=== PATIENT | female | born 2000 | race Caucasian/White ===

== ENCOUNTER 2022-02-04 13:54 | Emergency (ER) | payer MEDICAID, SELFPAY ==
[2022-02-04 14:47] VITALS: BP 115/79; PULSE 101; RESP 18; TEMP 37.6; O2SAT 98; BMI 16.5
--- NOTE | 2022-02-04 15:40 | PC.NURSE ---
Assumed care of patient.
--- NOTE | 2022-02-04 15:54 | W.ED.ABDPA2 ---
HPI - Abdominal Pain General: Chief Complaint: Abdominal Pain Stated Complaint: Vomiting Time Seen by Provider: 02/04/22 14:51 Source: patient Mode of arrival: ambulatory Limitations: no limitations History of Present Illness: 21-year-old female presents emergency room with complaint of abdominal pain. Patient states her last 2 days she has had multiple episodes of vomiting and upper abdominal discomfort and tenderness. She denies any fever sweats chills dysuria urgency or frequency states she is currently on her menses does not believe she is . MD elicited complaint: abdominal pain Onset (ago): day(s) (2) Location: None Severity: moderate Quality: cramping Radiation: none Exacerbating factors: nothing Relieving factors: nothing Associated Symptoms: Reports anorexia, GI cramping, nausea, poor appetite and vomiting; Denies belching, bloating, change in bowel habits, change in stool character, chills, coffee ground emesis, constipation, diarrhea, dyspepsia, dysuria, excessive flatus, fever(s), heartburn, hematochezia, hematuria, hematemesis, fecal incontinence, loose stools, melena and syncope Review of Systems Const: Reports: fatigue and malaise; Denies: fever(s) or chills ENMT: Denies: throat pain, ear or mastoid pain, nasal discharge or nasal congestion Card: Denies: chest pain or syncope Resp: Denies: dyspnea, productive cough or non-productive cough GI: Reports: abdominal pain, nausea, vomiting and GI cramping; Denies: hematemesis, coffee ground emesis, heartburn, diarrhea, constipation, bloating, belching, excessive flatus, fecal incontinence, change in bowel habits, change in stool character, hematochezia or melena : Denies: flank pain, difficulty voiding, dysuria, urinary frequency, urinary urgency or hematuria Skin/Breast: Denies: rash or pruritus PFSH ED PFSH: Medical History No significant past medical history Surgical History No significant past surgical history Social History Smoking and tobacco status: never smoked Alcohol intake: never Physical Exam Const: GENERAL APPEARANCE: cooperative and comfortable NUTRITIONAL APPEARANCE: cachectic ORIENTATION/CONSCIOUSNESS: Yes awake, Yes oriented to person, Yes oriented to place and Yes oriented to time HENMT: COMMON NORMALS: normocephalic, atraumatic and hearing grossly normal bilaterally HEAD & SCALP: normocephalic and atraumatic Neck/C-Spine: COMMON NORMALS: no JVD Resp: COMMON NORMALS: normal respiratory effort, No retractions, No use of accessory muscles and clear to auscultation bilaterally AUSCULTATION: clear to auscultation bilaterally Cardio: COMMON NORMALS: no JVD, regular rate, regular rhythm and No murmurs present (Cardio) RATE: regular rate RHYTHM: regular rhythm GI: COMMON NORMALS: Soft to palpation and No hepatosplenomegaly present AUSCULTATION: Yes normoactive bowel sounds PALPATION: Yes Soft to palpation, No Tenderness to palpation present (GI), No Guarding due to palpation present (GI) and Yes No hepatosplenomegaly present Extremity: COMMON NORMALS: normal to inspection, capillary refill normal, no clubbing, cyanosis or edema, no calf tenderness and no pedal edema Neuro: SENSORIUM/ORIENTATION: Yes oriented to person, Yes oriented to place and Yes oriented to time Skin: COMMON NORMALS: no rashes or lesions noted GENERAL SKIN EXAM: no rashes or lesions noted Course Vital Signs: Vital signs: Vital Signs Temperature 99.6 F 02/04/22 14:47 Pulse Rate 72 02/04/22 19:00 Respiratory Rate 16 02/04/22 19:00 Blood Pressure 107/70 02/04/22 19:00 Pulse Oximetry 100 02/04/22 19:00 MDM - Abdominal Pain Medical Decision Making Labs and imaging reviewed. Slight elevation in liver enzymes otherwise unremarkable patient still has some mild abdominal discomfort White count 13 4 remainder of exam unremarkable she currently having her period which I think accounts for some of fluid in the pelvis exam to the upper abdomen does not show acute abdomen we will go ahead and discharge home at this time. Set her up for HIDA scan and establish with a PCP return if has further problems. Medical Records I reviewed the patient's medical records. Lab Data I reviewed the patient's lab results. : 02/04/22 15:45 02/04/22 15:45 Labs/Radiology: Radiology Impressions Abdomen/Pelvis CT 02/04/22 16:15 IMPRESSION: 1. Negative for acute inflammatory process in the abdomen or pelvis. 2. Right ovary 16 mm cyst, likely follicular. 3. Fluid in the uterine cavity likely related to menstrual status. Gallbladder Ultrasound 02/04/22 17:06 IMPRESSION: No acute findings. Laboratory Results WBC 13.4 10^3/uL (4.5-13.0) H 02/04/22 15:45 RBC 5.08 10^6/uL (4.1-5.3) 02/04/22 15:45 Hgb 15.2 g/dL (11.5-15.3) 02/04/22 15:45 Hct 43.9 % (37.0-47.0) 02/04/22 15:45 MCV 86.4 fl (81-99) 02/04/22 15:45 MCH 29.9 pg (28.0-34.0) 02/04/22 15:45 MCHC 34.6 g/dL (30.0-36.0) 02/04/22 15:45 RDW 12.3 % (12.1-15.1) 02/04/22 15:45 Plt Count 266 10^3/cmm (130-400) 02/04/22 15:45 MPV 12.7 fL (7.4-10.4) H 02/04/22 15:45 Neut % (Auto) 79.0 % 02/04/22 15:45 Lymph % (Auto) 13.3 % 02/04/22 15:45 [place] % (Auto) 7.2 % 02/04/22 15:45 Eos % (Auto) 0.0 % 02/04/22 15:45 Baso % (Auto) 0.1 % 02/04/22 15:45 Neut # (Auto) 10.54 10^3/uL (1.8-8.0) H 02/04/22 15:45 Lymph # (Auto) 1.8 10^3/uL (1.5-6.5) 02/04/22 15:45 [place] # (Auto) 1.0 10^3/uL (0.2-0.9) H 02/04/22 15:45 Eos # (Auto) 0.0 10^3/uL (0.0-0.8) 02/04/22 15:45 Baso # (Auto) 0.0 10^3/uL (0.0-0.1) 02/04/22 15:45 Nucleated RBC % (auto) 0 % 02/04/22 15:45 Nucleated RBCs # 0.0 /100WBC 02/04/22 15:45 Sodium 133 mmol/L (136-145) L 02/04/22 15:45 Potassium 3.4 mmol/L (3.5-5.1) L 02/04/22 15:45 Chloride 86 mmol/L (98-107) L 02/04/22 15:45 Carbon Dioxide 26 mmol/L (22-29) 02/04/22 15:45 Anion Gap 24.4 (5-19) H 02/04/22 15:45 BUN 18 mg/dL (6-20) 02/04/22 15:45 Creatinine 0.6 mg/dL (0.5-0.9) 02/04/22 15:45 GFR Calculation 128.8 mL/min (90-130) 02/04/22 15:45 Glucose 94 mg/dL (65-115) 02/04/22 15:45 Calculated Osmolality 278 mOsm/kg (285-295) L 02/04/22 15:45 Calcium 10.7 mg/dL (8.5-10.5) H 02/04/22 15:45 Total Bilirubin 0.9 mg/dL (0.15-1.2) 02/04/22 15:45 AST 46 U/L (0-32) H 02/04/22 15:45 ALT 49 U/L (0-33) H 02/04/22 15:45 Alkaline Phosphatase 113 IU/L (35-105) H 02/04/22 15:45 Total Protein 10.6 g/dL (6.6-8.7) H 02/04/22 15:45 Albumin 6.9 g/dL (3.5-5.2) H 02/04/22 15:45 Globulin 3.7 g/dL (1.3-4.6) 02/04/22 15:45 Lipase 17 U/L (13-60) 02/04/22 15:45 HCG, Qual Negative (Negative) 02/04/22 15:45 Discharge Plan Discharge Patient Disposition: Home Clinical Impression: Abdominal pain, Elevated LFTs Condition: Stable Prescriptions: New ondansetron HCl 4 mg tablet 4 mg PO Q6H PRN (Reason: nausea and vomiting) Qty: 20 0RF Discharge Orders: Discharge ED (Routine); Ordered 02/04/22 Ordered By: Fernando Umanzor Discharge Diet: Clear Liquid Discharge Activity: Increase activity as tolerated Patient Instructions: Abdominal Pain (ED), Opioid Safety Activity Restrictions/Additional Instructions: account relationship manager will call to make arrangements for you to have a HIDA scan and establish with a PCP. Stand Alone Forms: Work/School Release Coding Level of Care Code ED Junior Mechanical Engineer for [employer] Fwd Exam Comprehensive
--- NOTE | 2022-02-04 16:07 | PC.NURSE ---
Attempted to IVs without success. We will ask another RN to attempt. Blood draw successful and sent to lab.
--- NOTE | 2022-02-04 16:15 | CTR_ITS ---
PROCEDURE INFORMATION: Exam: CT Abdomen And Pelvis With Contrast Exam date and time: 02/04/2022 5:12 PM Age: 21 years old Clinical indication: Vomiting; Additional info: Abd pain TECHNIQUE: Imaging protocol: Computed tomography of the abdomen and pelvis with contrast. Radiation optimization: All CT scans at this facility use at least one of these dose optimization techniques: automated exposure control; mA and/or kV adjustment per patient size (includes targeted exams where dose is matched to clinical indication); or iterative reconstruction. Contrast material: OMNI 300; Contrast volume: 50 ml; Contrast route: INTRAVENOUS (IV); COMPARISON: No relevant prior studies available. RADIATION DOSE METRICS: Total DLP (mGy-cm): 622.67 FINDINGS: Liver: Normal. No mass. Gallbladder and bile ducts: Normal. No calcified stones. No ductal dilation. Pancreas: Normal. No ductal dilation. Spleen: Normal. No splenomegaly. Adrenal glands: Normal. No mass. Kidneys and ureters: Normal. No hydronephrosis. Stomach and bowel: Unremarkable. No obstruction. No mucosal thickening. Appendix: No evidence of appendicitis. Intraperitoneal space: Unremarkable. No free air. No significant fluid collection. Vasculature: Unremarkable. No abdominal aortic aneurysm. Lymph nodes: Unremarkable. No enlarged lymph nodes. Urinary bladder: Unremarkable as visualized. Reproductive: Right ovary 16 mm cyst, likely follicular. Fluid in the uterine cavity likely related to menstrual status. Bones/joints: Unremarkable. No acute fracture. Soft tissues: Unremarkable. CT/CT abdomen pelvis w con* [id number] IMPRESSION: 1. Negative for acute inflammatory process in the abdomen or pelvis. 2. Right ovary 16 mm cyst, likely follicular. 3. Fluid in the uterine cavity likely related to menstrual status.
[2022-02-04] MEDS: ondansetron 2 mg/ML SDV 2 mL 4 MG IVP ×2 (16:16→18:28)
[2022-02-04] MEDS: sodium chloride 0.9% 1,000 ML 999 ML IV (16:17)
[2022-02-04 16:21] LABS: Basophils % 0.1 %; Hematocrit 43.9 % (37.0-47.0); Hemoglobin 15.2 g/dL (11.5-15.3); Lymphocytes # 1.8 10^3/uL (1.5-6.5); Lymphocytes % 13.3 %; Mean Corpuscular HGB Conc 34.6 g/dL (30.0-36.0); Mean Corpuscular Hemoglobin 29.9 pg (28.0-34.0); Mean Corpuscular Volume 86.4 fl (81-99); Mean Platelet Volume 12.7 fL (7.4-10.4); Monocytes % 7.2 %; Neutrophils # 10.54 10^3/uL (1.8-8.0); Nucleated Red Blood Cells % 0 %; Platelet Count 266 10^3/cmm (130-400); Red Blood Count 5.08 10^6/uL (4.1-5.3); Red Cell Distribution Width 12.3 % (12.1-15.1); White Blood Count 13.4 10^3/uL (4.5-13.0)
[2022-02-04 16:39] LABS: Slide Review Slide Review Perform
[2022-02-04 16:40] LABS: Alanine Aminotransferase 49 U/L (0-33); Alkaline Phosphatase 113 IU/L (35-105); Blood Urea Nitrogen 18 mg/dL (6-20); Calcium 10.7 mg/dL (8.5-10.5); Carbon Dioxide 26 mmol/L (22-29); Chloride 86 mmol/L (98-107); Creatinine Clr Calc Pharmacy 97.1909; Glomerular Filtration Rate 128.8 mL/min (90-130); Glucose 94 mg/dL (65-115); Lipase 17 U/L (13-60); Osmolality Calculated 278 mOsm/kg (285-295); Sodium 133 mmol/L (136-145); Total Bilirubin 0.9 mg/dL (0.15-1.2); Total Protein 10.6 g/dL (6.6-8.7)
[2022-02-04 16:56] LABS: HCG, Serum Qual Negative (Negative)
[2022-02-04 16:59] LABS: Albumin Level 6.9 g/dL (3.5-5.2); Anion Gap 24.4 (5-19); Aspartate Amino Transferase 46 U/L (0-32); Globulin 3.7 g/dL (1.3-4.6); Potassium 3.4 mmol/L (3.5-5.1)
--- NOTE | 2022-02-04 17:06 | USR_ITS ---
PROCEDURE INFORMATION: Exam: US Abdomen, Limited; Right Upper Quadrant Exam date and time: 02/04/2022 6:11 PM Age: 21 years old Clinical indication: Abdominal pain; Additional info: Elevated lfts/abd pain TECHNIQUE: Imaging protocol: US abdomen. Real time ultrasound with image documentation. Limited exam focused on the right upper quadrant. COMPARISON: CT abdomen pelvis w con* [id number] 02/04/2022 5:12 PM FINDINGS: Liver: Normal. No masses. Gallbladder: Normal. No gallstones. There is no gallbladder wall thickening. Biliary ducts: Normal. No stones. No dilation. Pancreas: Visualized pancreas is unremarkable. Right kidney: Normal. No mass. No hydronephrosis. US/US gall bladder [id number] IMPRESSION: No acute findings.
[2022-02-04] MEDS: iohexol 300 mg/mL 100 mL Btl IV (17:16)
--- NOTE | 2022-02-04 18:28 | PC.NURSE ---
While at bedside patient is having ultrasound performed. Patient denies any further needs at this time.
[2022-02-04 19:00] VITALS: BP 107/70; PULSE 72; RESP 16; O2SAT 100
--- NOTE | 2022-02-14 11:03 | DCPLANNER ---
insurance territory manager had message to schedule an outpatient HIDA scan for patient and follow up with general surgery. insurance territory manager spoke with patient, she stated that she is feeling better and does not want to follow up with general surgery at this time.
== END 2022-02-04 19:16 | disposition home or self-care (01) ==
PROVIDERS: Physician Assistant; Emergency Provider Family Medicine
DX: R10.9 Unspecified abdominal pain (principal); R94.5 Abnormal results of liver function studies; R11.2 Nausea with vomiting, unspecified
CPT/HCPCS: 74177; 76705; 80053; 83690; 84703; 85025; 96361; 96374; 96376; 99284; J2405; J7030; Q9967

== ENCOUNTER 2022-06-05 12:54 | Emergency (ER) | payer MEDICAID, SELFPAY ==
[2022-06-05 12:57] VITALS: BP 117/66; PULSE 91; RESP 16; TEMP 36.4; O2SAT 100
--- NOTE | 2022-06-05 15:51 | ED_ITS ---
Documented by User: OLIVER Smith 06/06/22 07:22 HPI - Nausea/Vomiting/Diarrhea General: Chief complaint: Nausea/Vomiting/Diarrhea Stated complaint: n/v Time Seen by Provider: 06/05/22 15:36 History of Present Illness: Patient is a 21-year-old female comes to the ED with nausea and vomiting. Patient says symptoms started this morning about an hour or so after she ate some ham for breakfast that she got at a gas station. She has been having multiple episodes of diarrhea, nausea and vomiting since symptoms started a couple hours ago. She has not been able to keep any food or fluids down and has had multiple episodes of emesis since onset of symptoms. Denies any fever, chills, body aches, abdominal pain or bladder symptoms. Associated nausea: Yes Associated symtoms: Reports nausea; Denies change in vision, chest pain, dysuria, fatigue, headache(s) or palpitations Review of Systems Const: Denies: fever(s), chills or fatigue Eyes: Denies: change in vision or eye discomfort ENMT: Denies: throat pain, odynophagia, nasal discharge or nasal congestion Card: Denies: chest pain, palpitations, edema, swelling of feet/ankles, dyspnea on exertion or orthopnea Resp: Denies: dyspnea, productive cough or non-productive cough GI: Reports: nausea, vomiting and diarrhea; Denies: abdominal pain, constipation or hematochezia : Denies: flank pain, dysuria or hematuria Musc: Denies: neck pain, back pain or extremity swelling Skin/Breast: Denies: rash or new lesions Neuro: Denies: headache(s), numbness in extremities or weakness in extremities PFS ED PFSH: Medical History No significant past medical history Surgical History No significant past surgical history Social History Smoking and tobacco status: never smoked Alcohol intake: never Physical Exam Const: COMMON NORMALS: no acute distress, patient oriented x3 and alert GENERAL APPEARANCE: cooperative and comfortable HENMT: COMMON NORMALS: normocephalic HEAD & SCALP: normocephalic MOUTH: Normal oral and palatal mucosa present THROAT: posterior oropharynx normal and uvula midline Neck/C-Spine: COMMON NORMALS: supple GENERAL: Yes normal visual inspection Resp: COMMON NORMALS: normal respiratory effort, No retractions, No use of accessory muscles and clear to auscultation bilaterally AUSCULTATION: clear to auscultation bilaterally Cardio: COMMON NORMALS: regular rate, regular rhythm, S1 normal heart sound present, S2 normal heart sound present, No gallops present (Cardio), No clicks present (Cardio), No murmurs present (Cardio) and Peripheral pulses 2+ throughout RATE: regular rate RHYTHM: regular rhythm HEART SOUNDS: S1 normal heart sound present and S2 normal heart sound present PERIPHERAL PULSES: Peripheral pulses 2+ throughout GI: COMMON NORMALS: Normal to inspection, nondistended, normoactive bowel sounds present, Soft to palpation, non-tender and no masses PALPATION: Yes Soft to palpation : COMMON NORMALS: Yes no CVA tenderness BLADDER/KIDNEY EXAM: Yes no CVA tenderness Back/Pelvis: COMMON NORMALS: no CVA tenderness Extremity: COMMON NORMALS: normal to inspection Neuro: COMMON NORMALS: patient oriented x3 SENSORIUM/ORIENTATION: Yes alert GAIT: Yes Normal gait present Skin: GENERAL SKIN EXAM: dry skin Course Vital Signs: Vital signs: Vital Signs Temperature 98.6 F 06/05/22 19:37 Pulse Rate 70 06/05/22 23:20 Respiratory Rate 14 06/05/22 23:20 Blood Pressure 103/71 06/05/22 23:20 Pulse Oximetry 95 06/05/22 23:20 Oxygen Delivery Me thod 06/05/22 21:30 MDM - Nausea/Vomiting/Diarrhea Lab Data I reviewed the patient's lab results. : 06/05/22 16:09 06/05/22 16:09 Radiology Impressions Abdomen/Pelvis CT 06/05/22 20:24 IMPRESSION: 1. Hepatomegaly still likely. Interval mild periportal edema in the liver. Clinical correlation recommended as to the likelihood of hepatitis, cholecystitis or other processes. Continued slight free fluid. 2. Interval appearance or enlargement of the 19 mm right ovarian mass suggestive of a follicular cyst. 3. Mild right ovarian varix again evident. Current suggestion of mild bilateral pelvic varices. Other findings detailed above. Laboratory Results WBC 20.9 10^3/uL (4.5-13.0) H 06/05/22 16:09 RBC 3.95 10^6/uL (4.1-5.3) L 06/05/22 16:09 Hgb 11.7 g/dL (11.5-15.3) 06/05/22 16:09 Hct 34.8 % (37.0-47.0) L 06/05/22 16:09 MCV 88.1 fl (81-99) 06/05/22 16:09 MCH 29.6 pg (28.0-34.0) 06/05/22 16:09 MCHC 33.6 g/dL (30.0-36.0) 06/05/22 16:09 RDW 12.5 % (12.1-15.1) 06/05/22 16:09 Plt Count 277 10^3/cmm (130-400) 06/05/22 16:09 MPV 12.2 fL (7.4-10.4) H 06/05/22 16:09 Neut % (Auto) 91.8 % 06/05/22 16:09 Lymph % (Auto) 3.5 % 06/05/22 16:09 Sanborn % (Auto) 4.1 % 06/05/22 16:09 Eos % (Auto) 0.0 % 06/05/22 16:09 Baso % (Auto) 0.2 % 06/05/22 16:09 Neut # (Auto) 19.17 10^3/uL (1.8-8.0) H 06/05/22 16:09 Lymph # (Auto) 0.7 10^3/uL (1.5-6.5) L 06/05/22 16:09 Sanborn # (Auto) 0.9 10^3/uL (0.2-0.9) 06/05/22 16:09 Eos # (Auto) 0.0 10^3/uL (0.0-0.8) 06/05/22 16:09 Baso # (Auto) 0.0 10^3/uL (0.0-0.1) 06/05/22 16:09 Nucleated RBC % (auto) 0 % 06/05/22 16:09 Nucleated RBCs # 0.0 /100WBC 06/05/22 16:09 Sodium 140 mmol/L (136-145) 06/05/22 16:09 Potassium 3.4 mmol/L (3.5-5.1) L 06/05/22 16:09 Chloride 103 mmol/L (98-107) 06/05/22 16:09 Carbon Dioxide 21 mmol/L (22-29) L 06/05/22 16:09 Anion Gap 19.4 (5-19) H 06/05/22 16:09 BUN 11 mg/dL (6-20) 06/05/22 16:09 Creatinine 0.5 mg/dL (0.5-0.9) 06/05/22 16:09 GFR Calculation 158.9 mL/min (90-130) H 06/05/22 16:09 Glucose 155 mg/dL (65-115) H 06/05/22 16:09 Calculated Osmolality 293 mOsm/kg (285-295) 06/05/22 16:09 Calcium 10.0 mg/dL (8.5-10.5) 06/05/22 16:09 Total Bilirubin 0.4 mg/dL (0.15-1.2) 06/05/22 16:09 AST 21 U/L (0-32) 06/05/22 16:09 ALT 15 U/L (0-33) 06/05/22 16:09 Alkaline Phosphatase 83 U/L (35-105) 06/05/22 16:09 Total Protein 7.5 g/dL (6.6-8.7) 06/05/22 16:09 Albumin 4.8 g/dL (3.5-5.2) 06/05/22 16:09 Globulin 2.7 g/dL (1.3-4.6) 06/05/22 16:09 HCG, Qual Negative (Negative) 06/05/22 17:14 Urine Color Yellow (Yellow) 06/05/22 16:20 Urine Appearance Clear (CLEAR) 06/05/22 16:20 Urine pH 8.5 (5-7) A 06/05/22 16:20 Ur Specific Leander 1.020 (1.005-1.030) 06/05/22 16:20 Urine Protein 1+ (Negative) A 06/05/22 16:20 Urine Glucose (UA) Negative (Normal) 06/05/22 16:20 Urine Ketones =>160 (Negative) 06/05/22 16:20 Urine Blood Moderate (Negative) A 06/05/22 16:20 Urine Nitrate Negative 06/05/22 16:20 Urine Bilirubin Negative (Negative) 06/05/22 16:20 Urine Urobilinogen 0.2 mg/dL (Negative) 06/05/22 16:20 Ur Leukocyte Esterase Negative (Negative) 06/05/22 16:20 Urine RBC 5-10 /hpf (0-2) H 06/05/22 16:20 Urine WBC 15-25 /hpf (0-5) H 06/05/22 16:20 Ur Squamous Epith Cells 5-10 /hpf (0-5) H 06/05/22 16:20 Amorphous Sediment Not Reportable 06/05/22 16:20 Urine Bacteria 1+ /hpf (NONE) H 06/05/22 16:20 Discharge Plan Discharge Patient Disposition: Home Clinical Impression: Gastroenteritis, Hepatomegaly Condition: Stable Prescriptions: Continued ondansetron HCl 4 mg tablet 4 mg PO Q6H PRN (Reason: nausea and vomiting) Qty: 10 0RF No Action amoxicillin 500 mg capsule 500 mg PO TID hydrocodone-acetaminophen 5-325 mg tablet 1 tab PO Q4H PRN (Reason: Pain) Discharge Orders: Discharge ED (Routine); Ordered 06/05/22 Ordered By: Hayden Mabry Discharge Diet: Advance as tolerated Discharge Activity: Increase activity as tolerated Patient Instructions: Gastroenteritis (ED) Activity Restrictions/Additional Instructions: Home and rest. Drink frequent sips of fluid to maintain hydration. Follow-up with primary care or specialist for further evaluation and treatment. I have requested case management to help you follow-up with an internal medicine physician for further evaluation of your liver due to its enlargement and your persistent symptoms. Return to the ER for increased fever, blood in vomit or stool, or new concerns. Sign Out Sign Out Data: Patient Sign Out occurred on 06/05/22 at 17:05. Patient's care was discussed, and care was transferred from to Hayden Mabry. Coding Level of Care Code ED Regional Director Of Admissions for Chg Fwd Exam Comprehensive Documented by User: KIRIT Garcia 06/05/22 23:02 HPI - Nausea/Vomiting/Diarrhea General: Chief complaint: Nausea/Vomiting/Diarrhea Stated complaint: n/v Time Seen by Provider: 06/05/22 15:36 [facility] ED PFSH: Medical History No significant past medical history Surgical History No significant past surgical history Social History Smoking and tobacco status: never smoked Alcohol intake: never Course ED course: 1717, reviewed with patient her exam and labs. Patient appears to have a bout of gastroenteritis/food poisoning. Her sister reported that she was concerned due to patient's recurrent episodes with a previous episode that occurred back in February. Patient has also had monthly episodes as she describes which causes her to have similar symptoms. Patient appears unwell. Vital signs are stable. 2026, we continue to wait for CT abdomen pelvis. Reassessment of patient notes that patient's abdomen is tender and firm. Concern for peritonitis or appendicitis. Vital Signs: Vital signs: Vital Signs Temperature 98.6 F 06/05/22 19:37 Pulse Rate 70 06/05/22 23:20 Respiratory Rate 14 06/05/22 23:20 Blood Pressure 103/71 06/05/22 23:20 Pulse Oximetry 95 06/05/22 23:20 Oxygen Delivery Va thod 06/05/22 21:30 MDM - Nausea/Vomiting/Diarrhea Medical Decision Making 21-year-old female comes in today for complaints of persistent nausea and vomiting. I received this patient from Silverio Padron PA-C at his end of shift. On my exam patient was pale with abdominal pain and discomfort and persistent nausea and vomiting. CBC showed a white count of 20,000. Potassium was 3.4. Glucose was 155. Urinalysis was contaminated with skin cells but had a large amount of ketones along with some red blood cells and white blood cells. CT of the abdomen pelvis was ordered and showed some liver enlargement and an ovarian cyst. Differential diagnosis includes hepatitis, gallbladder disease, brian roenteritis, gastritis. Reviewed exam with patient with recommendations for treatment for gastroenteritis and follow-up with internal medicine for review of abnormal CT hepatomegaly. Patient reports understanding and agreed to plan. Lab Data : 06/05/22 16:09 06/05/22 16:09 Radiology Impressions Abdomen/Pelvis CT 06/05/22 20:24 IMPRESSION: 1. Hepatomegaly still likely. Interval mild periportal edema in the liver. Clinical correlation recommended as to the likelihood of hepatitis, cholecystitis or other processes. Continued slight free fluid. 2. Interval appearance or enlargement of the 19 mm right ovarian mass suggestive of a follicular cyst. 3. Mild right ovarian varix again evident. Current suggestion of mild bilateral pelvic varices. Other findings detailed above. Laboratory Results WBC 20.9 10^3/uL (4.5-13.0) H 06/05/22 16:09 RBC 3.95 10^6/uL (4.1-5.3) L 06/05/22 16:09 Hgb 11.7 g/dL (11.5-15.3) 06/05/22 16:09 Hct 34.8 % (37.0-47.0) L 06/05/22 16:09 MCV 88.1 fl (81-99) 06/05/22 16:09 MCH 29.6 pg (28.0-34.0) 06/05/22 16:09 MCHC 33.6 g/dL (30.0-36.0) 06/05/22 16:09 RDW 12.5 % (12.1-15.1) 06/05/22 16:09 Plt Count 277 10^3/cmm (130-400) 06/05/22 16:09 MPV 12.2 fL (7.4-10.4) H 06/05/22 16:09 Neut % (Auto) 91.8 % 06/05/22 16:09 Lymph % (Auto) 3.5 % 06/05/22 16:09 Sanborn % (Auto) 4.1 % 06/05/22 16:09 Eos % (Auto) 0.0 % 06/05/22 16:09 Baso % (Auto) 0.2 % 06/05/22 16:09 Neut # (Auto) 19.17 10^3/uL (1.8-8.0) H 06/05/22 16:09 Lymph # (Auto) 0.7 10^3/uL (1.5-6.5) L 06/05/22 16:09 Sanborn # (Auto) 0.9 10^3/uL (0.2-0.9) 06/05/22 16:09 Eos # (Auto) 0.0 10^3/uL (0.0-0.8) 06/05/22 16:09 Baso # (Auto) 0.0 10^3/uL (0.0-0.1) 06/05/22 16:09 Nucleated RBC % (auto) 0 % 06/05/22 16:09 Nucleated RBCs # 0.0 /100WBC 06/05/22 16:09 Sodium 140 mmol/L (136-145) 06/05/22 16:09 Potassium 3.4 mmol/L (3.5-5.1) L 06/05/22 16:09 Chloride 103 mmol/L (98-107) 06/05/22 16:09 Carbon Dioxide 21 mmol/L (22-29) L 06/05/22 16:09 Anion Gap 19.4 (5-19) H 06/05/22 16:09 BUN 11 mg/dL (6-20) 06/05/22 16:09 Creatinine 0.5 mg/dL (0.5-0.9) 06/05/22 16:09 GFR Calculation 158.9 mL/min (90-130) H 06/05/22 16:09 Glucose 155 mg/dL (65-115) H 06/05/22 16:09 Calculated Osmolality 293 mOsm/kg (285-295) 06/05/22 16:09 Calcium 10.0 mg/dL (8.5-10.5) 06/05/22 16:09 Total Bilirubin 0.4 mg/dL (0.15-1.2) 06/05/22 16:09 AST 21 U/L (0-32) 06/05/22 16:09 ALT 15 U/L (0-33) 06/05/22 16:09 Alkaline Phosphatase 83 U/L (35-105) 06/05/22 16:09 Total Protein 7.5 g/dL (6.6-8.7) 06/05/22 16:09 Albumin 4.8 g/dL (3.5-5.2) 06/05/22 16:09 Globulin 2.7 g/dL (1.3-4.6) 06/05/22 16:09 HCG, Qual Negative (Negative) 06/05/22 17:14 Urine Color Yellow (Yellow) 06/05/22 16:20 Urine Appearance Clear (CLEAR) 06/05/22 16:20 Urine pH 8.5 (5-7) A 06/05/22 16:20 Ur Specific Leander 1.020 (1.005-1.030) 06/05/22 16:20 Urine Protein 1+ (Negative) A 06/05/22 16:20 Urine Glucose (UA) Negative (Normal) 06/05/22 16:20 Urine Ketones =>160 (Negative) 06/05/22 16:20 Urine Blood Moderate (Negative) A 06/05/22 16:20 Urine Nitrate Negative 06/05/22 16:20 Urine Bilirubin Negative (Negative) 06/05/22 16:20 Urine Urobilinogen 0.2 mg/dL (Negative) 06/05/22 16:20 Ur Leukocyte Esterase Negative (Negative) 06/05/22 16:20 Urine RBC 5-10 /hpf (0-2) H 06/05/22 16:20 Urine WBC 15-25 /hpf (0-5) H 06/05/22 16:20 Ur Squamous Epith Cells 5-10 /hpf (0-5) H 06/05/22 16:20 Amorphous Sediment Not Reportable 06/05/22 16:20 Urine Bacteria 1+ /hpf (NONE) H 06/05/22 16:20 Discharge Plan Discharge Patient Disposition: Home Clinical Impression: Gastroenteritis, Hepatomegaly Condition: Stable Prescriptions: Continued ondansetron HCl 4 mg tablet 4 mg PO Q6H PRN (Reason: nausea and vomiting) Qty: 10 0RF No Action amoxicillin 500 mg capsule 500 mg PO TID hydrocodone-acetaminophen 5-325 mg tablet 1 tab PO Q4H PRN (Reason: Pain) Discharge Orders: Discharge ED (Routine); Ordered 06/05/22 Ordered By: Hayden Mabry Discharge Diet: Advance as tolerated Discharge Activity: Increase activity as tolerated Patient Instructions: Gastroenteritis (ED) Activity Restrictions/Additional Instructions: Home and rest. Drink frequent sips of fluid to maintain hydration. Follow-up with primary care or specialist for further evaluation and treatment. I have requested case management to help you follow-up with an internal medicine p hysician for further evaluation of your liver due to its enlargement and your persistent symptoms. Return to the ER for increased fever, blood in vomit or stool, or new concerns. Sign Out Sign Out Data: Patient Sign Out occurred on 06/05/22 at 17:05. Patient's care was discussed, and care was transferred from to Hayden Mabry. Coding Level of Care Code ED Regional Director Of Admissions for Renatag Fwd Exam Comprehensive
[2022-06-05 16:23] LABS: Basophils % 0.2 %; Hematocrit 34.8 % (37.0-47.0); Hemoglobin 11.7 g/dL (11.5-15.3); Lymphocytes # 0.7 10^3/uL (1.5-6.5); Lymphocytes % 3.5 %; Mean Corpuscular HGB Conc 33.6 g/dL (30.0-36.0); Mean Corpuscular Hemoglobin 29.6 pg (28.0-34.0); Mean Corpuscular Volume 88.1 fl (81-99); Mean Platelet Volume 12.2 fL (7.4-10.4); Monocytes # 0.9 10^3/uL (0.2-0.9); Monocytes % 4.1 %; Neutrophils # 19.17 10^3/uL (1.8-8.0); Neutrophils % 91.8 %; Nucleated Red Blood Cells % 0 %; Platelet Count 277 10^3/cmm (130-400); Red Blood Count 3.95 10^6/uL (4.1-5.3); Red Cell Distribution Width 12.5 % (12.1-15.1); White Blood Count 20.9 10^3/uL (4.5-13.0)
[2022-06-05] MEDS: sodium chloride 0.9% 1,000 ML 999 ML IV ×2 (16:24→17:47)
[2022-06-05] MEDS: ondansetron 2 mg/ML SDV 2 mL 4 MG IVP (16:24)
[2022-06-05 16:47] LABS: Bilirubin Urine Negative (Negative); Blood Urine Moderate (Negative); Glucose Urine UA Negative (Normal); Leukocyte Esterase Urine Negative (Negative); Nitrate Urine Negative; Protein Urine 1+ (Negative); Urine Appearance Clear (CLEAR); Urine Color Yellow (Yellow); Urobilinogen Urine 0.2 mg/dL (Negative)
[2022-06-05 16:51] LABS: Alanine Aminotransferase 15 U/L (0-33); Albumin Level 4.8 g/dL (3.5-5.2); Alkaline Phosphatase 83 U/L (35-105); Anion Gap 19.4 (5-19); Aspartate Amino Transferase 21 U/L (0-32); Blood Urea Nitrogen 11 mg/dL (6-20); Carbon Dioxide 21 mmol/L (22-29); Chloride 103 mmol/L (98-107); Creatinine Clr Calc Pharmacy 110.1495; Globulin 2.7 g/dL (1.3-4.6); Glomerular Filtration Rate 158.9 mL/min (90-130); Glucose 155 mg/dL (65-115); Osmolality Calculated 293 mOsm/kg (285-295); Potassium 3.4 mmol/L (3.5-5.1); Sodium 140 mmol/L (136-145); Total Bilirubin 0.4 mg/dL (0.15-1.2); Total Protein 7.5 g/dL (6.6-8.7)
[2022-06-05 17:08] LABS: Add Urine Microscopic? YES; pH Urine 8.5 (5-7)
[2022-06-05 17:11] LABS: Add Urine Culture? Yes; Bacteria Urine 1+ /hpf; WBC Urine 15-25 /hpf (0-5)
[2022-06-05 17:54] LABS: HCG, Serum Qual Negative (Negative)
[2022-06-05] MEDS: metoclopramide 5 mg/mL SDV 2 mL 10 MG IVP (17:57)
[2022-06-05 19:37] VITALS: BP 107/55; PULSE 79; RESP 14; TEMP 37; O2SAT 99
--- NOTE | 2022-06-05 20:24 | CTR_ITS ---
PROCEDURE INFORMATION: Exam: CT Abdomen And Pelvis With Contrast Exam date and time: 06/05/2022 8:53 PM Age: 21 years old Clinical indication: Pain and abnormal findings; Abnormal lab test; Abdominal pain; Localized; Right lower quadrant (rlq); Patient HX: Rlq pain with elevated wbc. Nausea. ; Additional info: Abd pain, elevated wbc, concern for appendiciits, abscess TECHNIQUE: Imaging protocol: Computed tomography of the abdomen and pelvis with contrast. Radiation optimization: All CT scans at this facility use at least one of these dose optimization techniques: automated exposure control; mA and/or kV adjustment per patient size (includes targeted exams where dose is matched to clinical indication); or iterative reconstruction. Contrast material: OMNI 350; Contrast volume: 80 ml; Contrast route: INTRAVENOUS (IV); COMPARISON: CT abdomen pelvis w con* [id number] 02/04/2022 5:12 PM RADIATION DOSE METRICS: Total DLP (mGy-cm): 284.77 FINDINGS: Lungs: Continued small peripheral densities in the lung bases. Liver: Interval mild periportal edema in the liver. Still no liver mass. Hepatomegaly still likely. Gallbladder and bile ducts: Still no calcified gallstones or biliary ductal dilatation. Pancreas: Pancreas still unremarkable. Spleen: Still no splenomegaly. Adrenal glands: Still no adrenal mass. Kidneys and ureters: Still no hydronephrosis or apparent renal mass. Stomach and bowel: Unremarkable. No obstruction. No apparent mucosal thickening. Appendix: No evidence of appendicitis. Intraperitoneal space: Still no free air. Continued presence of slight free fluid. Vasculature: Mild right ovarian varix again evident. Current suggestion of mild bilateral pelvic varices. Aorta still unremarkable. Lymph nodes: No interval enlarged lymph nodes. Urinary bladder: Unremarkable as visualized. Reproductive: Interval appearance or enlargement of the 19 mm water density mass in the right ovary. Bones/joints: Continued mild narrowing of the L5-S1 disc. No acute bony disease. Soft tissues: Unremarkable. CT/CT abdomen pelvis w con* [id number] IMPRESSION: 1. Hepatomegaly still likely. Interval mild periportal edema in the liver. Clinical correlation recommended as to the likelihood of hepatitis, cholecystitis or other processes. Continued slight free fluid. 2. Interval appearance or enlargement of the 19 mm right ovarian mass suggestive of a follicular cyst. 3. Mild right ovarian varix again evident. Current suggestion of mild bilateral pelvic varices. Other findings detailed above.
[2022-06-05] MEDS: iohexol 350 mg/mL 100 mL Btl IV (21:05)
[2022-06-05 21:30] VITALS: BP 99/58; PULSE 70; RESP 14; O2SAT 95
[2022-06-05 23:20] VITALS: BP 103/71; PULSE 70; RESP 14; O2SAT 95
--- NOTE | 2022-06-06 04:38 | DCPLANNER ---
Addendum entered by Bety Taylor 08/14/22 15:54: patient had an appointment with internal medicine - appointment cancelled Addendum entered by Bety Taylor 06/09/22 14:13: Patient has a follow up appointment scheduled for Monday, June 27, 2022 at 1:[address] Rutherford at Internal Medicine. Clinic will call patient with appointment information. Original Note: human resources safety manager had message to schedule a follow up appointment for patient with Internal Medicine. human resources safety manager sent patients information to the front office staff at Internal Medicine. Patients information will be printed and reviewed. Clinic will call patient with appointment information.
== END 2022-06-05 23:22 | disposition home or self-care (01) ==
PROVIDERS: Family Medicine; Emergency Provider Nurse Practitioner Family
DX: K52.9 Noninfective gastroenteritis and colitis, unspecified (principal); R16.0 Hepatomegaly, not elsewhere classified
CPT/HCPCS: 74177; 80053; 81001; 84703; 85025; 87086; 96361; 96374; 96375; 99285; J2405; J2765; J7030; Q9967

== ENCOUNTER → 2022-10-10 15:01 | Outpatient (BNVA) | payer MEDICAID, SELFPAY | PROVIDERS: Visit Provider Surgery | DX: R19.7 Diarrhea, unspecified (principal) | CPT/HCPCS: 99203 ==

== ENCOUNTER 2022-11-01 06:53 | Day surgery (SDC) | payer MEDICAID, SELFPAY ==
[2022-10-30 10:38] VITALS: BMI 14.1
--- NOTE | 2022-10-30 12:30 | PC.NURSE ---
Patient requested meds for nausea/vomiting during telephone pre-op. Called Dr Marinelli and med for scopolamine patch 1 mg x [address] [facility] per Dr order. also ordered Benadryl OTC for patient to also help with patient with N/V. Called and educated the patient on these meds. Pharm to text patient when scop patch script is ready. Verbalized understanding.
[2022-11-01 07:20] VITALS: BP 99/59; PULSE 93; RESP 18; TEMP 36.9; O2SAT 96
[2022-11-01 07:27] LABS: OR HCG Qualitative Urine Negative (Negative)
[2022-11-01] MEDS: sodium chloride 0.9% 1,000 ML 30 ML IV (07:36)
--- NOTE | 2022-11-01 07:54 | ANES.PREANE2 ---
Pre-Anesthetic Assessment Height/Weight: Height 1.6 m Weight 36.287 kg Temp Pulse Resp BP Pulse Ox O2 Del Method 98.4 F 93 18 99/59 96 11/01/22 07:20 11/01/22 07:20 11/01/22 07:20 11/01/22 07:20 11/01/22 07:20 11/01/22 07:20 Operation Date: 11/01/22 08:30 Proposed Procedures p [id number] - colonoscopy R19.7(Not Applicable) - Ellis Marinelli DO Familial anesthetic complications: None Was Beta Bety taken within 24 hours: N/A Was Clonidine taken within 24 hours: N/A Last intake: Intake Last Liquid Date 10/31/22 Last Liquid Time 22:00 Last Solid Date 10/30/22 Last Solid Time 12:00 Social Tobacco (Vapes and marijuana) and No alcohol Exam alert, oriented x 3, clear to auscultation bilaterally and regular rate & rhythm Airway Submandibular: within normal limits Cervical ROM: within normal limits Mallampati: Class III Comments: Comments: Top back right tooth half way missing History/ROS No significant history except as noted and No significant complaints Pulmonary None reported CV/HEM None reported None reported Hepatic None reported GI 3-4 days of nausea and vomiting Metabolic None reported Musc/skel None reported Neuropsych Anxiety, Depression and Headache (Migraines) Anesthetic Plan ASA status: 2 Anesthesia: Anesthesia Evaluation, General and MAC Risk of > 500 ml blood loss (7ml/kg in children): No Medications/Allergies Home Medications Medication Instructions Recorded Confirmed Last Taken Type buspirone 5 mg tablet 5 mg PO BID 10/10/22 10/30/22 10/30/22 History escitalopram oxalate 20 mg tablet 20 mg PO DAILY 10/10/22 10/30/22 10/30/22 History (Lexapro) hydroxyzine HCl 25 mg tablet 25 mg PO BID PRN Anxiety 10/10/22 11/01/22 2 Weeks Ago History ~10/18/22 Allergies Allergy/AdvReac Type Severity Reaction Status Date / Time latex Allergy itchy Verified 10/30/22 10:28 Current Medications Generic Name Dose Route Start Last Admin Trade Name Freq PRN Reason Stop Dose Admin Sodium Chloride 1,000 mls @ 30 mls/hr 11/01/22 07:15 11/01/22 07:36 Sodium Chloride 0.9% IV 11/02/22 07:14 30 mls/hr .Q24H MATT Administration PFSH Anesthesia Medical History No significant past medical history Surgical History No significant past surgical history Social History Smoking and tobacco status: current every day smoker e-cigarettes E-Cigarette Details: vaporizer device and with nicotine Alcohol intake: current Alcohol intake frequency: holidays/special occasions only Data Anesthesia Cardiac Studies: No Data to Display
--- NOTE | 2022-11-01 09:01 | W.PM.OPSUD ---
Surgery/Procedure H&P Update DATE OF PROCEDURE: November 01, 2022 DATE H&P PERFORMED: 10/10/22 H&P UPDATE INFORMATION: I have reviewed H&P completed within last 30 days, I have examined patient prior to procedure and No changes to prior documentation PLANNED PROCEDURE: Operation Date: 11/01/22 08:30 Proposed Procedures p [id number] - colonoscopy R19.7(Not Applicable) - Ellis Marinelli, DO
[2022-11-01 09:27] VITALS: BP 81/43; PULSE 51; RESP 16; TEMP 36.3; O2SAT 96
[2022-11-01 09:40] VITALS: BP 96/62; PULSE 72; RESP 16; O2SAT 99
--- NOTE | 2022-11-01 13:05 | ANE.PACU2 ---
Inpatient post-anesthesia follow up: Airway intact: Yes Vital signs: Temperature 97.4 F Pulse Rate 72 Respiratory Rate 16 Blood Pressure 96/62 Pulse Oximetry 99 Oxygen Delivery Me thod Room Air Oxygen Flow Rate Fraction of Inspir ed Oxygen Hydration adequate: Yes Nausea and vomiting: No Pain level: 2 Mental status: Baseline
== END 2022-11-01 10:10 | disposition home or self-care (01) ==
PROVIDERS: Anesthesiology; PCP Family Medicine; Visit Provider Surgery
PROC: 0DJD8ZZ Inspection of Lower Intestinal Tract, Via Natural or Artificial Opening Endoscopic (ICD-10-PCS; CPT 45378; principal; 2022-11-01 08:30)
DX: R19.7 Diarrhea, unspecified (principal); F17.290 Nicotine dependence, other tobacco product, uncomplicated
CPT/HCPCS: 45380; 81025; 82274; 83630; 84703; 87493; 87506; 88305; J2704; J7030

== ENCOUNTER 2022-12-17 11:05 | Emergency (ER) | payer BC, SELFPAY ==
[2022-12-17 11:17] VITALS: BP 113/74; PULSE 98; RESP 18; O2SAT 96; BMI 14.7
--- NOTE | 2022-12-17 11:38 | ED_ITS ---
HPI - Nausea/Vomiting/Diarrhea General: Chief complaint: Nausea/Vomiting/Diarrhea Stated complaint: N/V Time Seen by Provider: 12/17/22 11:16 History of Present Illness: Patient presents to the ER with about a 5-day history of nausea and vomiting, the first 2 days of this 5-day. She did have diarrhea but that has resolved. She states she is unable to eat or drink or keep any food down, patient does have Zofran ODT she uses at home with no relief. Patient has had this multiple times in the past has seen general surgery and has had a colonoscopy for this. 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 MD elicited complaint: nausea, vomiting and diarrhea Onset (ago): day(s) (5 days ago) Description of vomiting: watery Description of diarrhea: watery Associated nausea: Yes Associated abdominal pain: Yes Location of pain: Diffuse Radiation: diffuse Pain consistency: constant and colicky Severity: similar to previous episodes Quality: aching Exacerbating factors: eating Associated symtoms: Reports nausea; Denies change in vision, chest pain, dysuria, headache(s) or palpitations Treatment prior to arrival: other (Zofran ODT) Review of Systems General: Reports: 10 or more systems reviewed and unremarkable except in HPI and below Const: Denies: fever(s) or chills Eyes: Denies: change in vision ENMT: Denies: throat pain or odynophagia Card: Denies: chest pain, palpitations or irregular heart rhythm Resp: Denies: dyspnea, productive cough or non-productive cough GI: Reports: abdominal pain, nausea, vomiting and diarrhea : Denies: flank pain, difficulty voiding or dysuria Musc: Denies: neck pain or back pain Skin/Breast: Denies: rash or pruritus Neuro: Denies: headache(s), numbness in extremities or weakness in extremities PFSH ED PFSH: Medical History No significant past medical history Surgical History No significant past surgical history Social History Smoking and tobacco status: current every day smoker e-cigarettes E-Cigarette Details: vaporizer device and with nicotine Alcohol intake: current Alcohol intake frequency: holidays/special occasions only Physical Exam Const: COMMON NORMALS: no acute distress, average body habitus, patient oriented x3, no limitations, healthy appearing, alert and well nourished HENMT: COMMON NORMALS: normocephalic, atraumatic, hearing grossly normal bilaterally, Normal external nose present and moist oral mucous membranes HEAD & SCALP: normocephalic and atraumatic NOSE: Normal external nose present Eye: COMMON NORMALS: Equal, round and reactive pupils present, EOMs intact bilaterally, conjunctivae normal and no scleral icterus CONJUNCTIVA: Yes conjunctivae normal PUPIL: Yes Equal, round and reactive pupils present Neck/C-Spine: COMMON NORMALS: full ROM, no lymphadenopathy, supple, no meningeal signs and no JVD Chest: COMMONS NORMALS: normal inspection of the chest and normal palpation of entire chest wall Resp: COMMON NORMALS: normal respiratory effort, No retractions, No use of accessory muscles and clear to auscultation bilaterally AUSCULTATION: clear to auscultation bilaterally Cardio: COMMON NORMALS: no JVD, regular rate, regular rhythm, S1 normal heart sound present, S2 normal heart sound present, No gallops present (Cardio), No clicks present (Cardio) and No murmurs present (Cardio) RATE: regular rate RHYTHM: regular rhythm HEART SOUNDS: S1 normal heart sound present and S2 normal heart sound present GI: COMMON NORMALS: Normal to inspection, nondistended, normoactive bowel sounds present and Soft to palpation PALPATION: Yes Soft to palpation and Yes Tenderness to palpation present (GI) Details: other (Mildly diffusely) : COMMON NORMALS: Yes no CVA tenderness BLADDER/KIDNEY EXAM: Yes no CVA tenderness Back/Pelvis: COMMON NORMALS: no CVA tenderness Neuro: COMMON NORMALS: patient oriented x3 SENSORIUM/ORIENTATION: Yes alert MENINGEAL SIGNS: Yes no meningeal signs Course Vital Signs: Vital signs: Vital Signs Pulse Rate 98 12/17/22 11:17 Respiratory Rate 18 12/17/22 11:17 Blood Pressure 113/74 12/17/22 11:17 Pulse Oximetry 96 12/17/22 11:17 Oxygen Delivery Me thod Room Air 12/17/22 11:17 MDM - Nausea/Vomiting/Diarrhea Medical Decision Making Patient presents with a history with a 5-day course of nausea and vomiting that had little bit of diarrhea at the beginning of it but it has resolved. Patient has had this happen multiple times in the past where she has been worked up. She was even sent to a surgeon had a colonoscopy and did biopsies. I think she may have some sort of colitis type issue. Physical exam was performed lab work was obtained which was essentially benign other than a potassium of 2.5. Pativladimir t was given IV fluids, antiemetics and oral potassium. Patient is feeling significantly better. Patient will be discharged home on oral potassium supplementation and is to follow-up with her primary care doctor. Differential Diagnosis Likely gastroenteritis (Colitis) and dehydration; Unlikely traveler's diarrhea, food poisoning, clostridium difficile infection or drug-induced nausea and vomiting Medical Records I reviewed the patient's medical records. Lab Data I reviewed the patient's lab results. 12/17/22 11:57 12/17/22 11:57 Laboratory Results WBC 10.1 10^3/uL (4.5-13.0) 12/17/22 11:57 RBC 5.41 10^6/uL (4.1-5.3) H 12/17/22 11:57 Hgb 16.0 g/dL (11.5-15.3) H 12/17/22 11:57 Hct 45.3 % (37.0-47.0) 12/17/22 11:57 MCV 83.7 fl (81-99) 12/17/22 11:57 MCH 29.6 pg (28.0-34.0) 12/17/22 11:57 MCHC 35.3 g/dL (30.0-36.0) 12/17/22 11:57 RDW 11.9 % (12.1-15.1) L 12/17/22 11:57 Plt Count 380 10^3/cmm (130-400) 12/17/22 11:57 MPV 11.9 fL (7.4-10.4) H 12/17/22 11:57 Neut % (Auto) 69.3 % 12/17/22 11:57 Lymph % (Auto) 20.7 % 12/17/22 11:57 [place] % (Auto) 9.4 % 12/17/22 11:57 Eos % (Auto) 0.2 % 12/17/22 11:57 Baso % (Auto) 0.1 % 12/17/22 11:57 Neut # (Auto) 6.97 10^3/uL (1.8-8.0) 12/17/22 11:57 Lymph # (Auto) 2.1 10^3/uL (1.5-6.5) 12/17/22 11:57 [place] # (Auto) 1.0 10^3/uL (0.2-0.9) H 12/17/22 11:57 Eos # (Auto) 0.0 10^3/uL (0.0-0.8) 12/17/22 11:57 Baso # (Auto) 0.0 10^3/uL (0.0-0.1) 12/17/22 11:57 Nucleated RBC % (auto) 0 % 12/17/22 11:57 Nucleated RBCs # 0.0 /100WBC 12/17/22 11:57 Sodium 127 mmol/L (136-145) L 12/17/22 11:57 Potassium 2.5 mmol/L (3.5-5.1) L* 12/17/22 11:57 Chloride 78 mmol/L (98-107) L 12/17/22 11:57 Carbon Dioxide 34 mmol/L (22-29) H 12/17/22 11:57 Anion Gap 17.5 (5-19) 12/17/22 11:57 BUN 14 mg/dL (6-20) 12/17/22 11:57 Creatinine 0.6 mg/dL (0.5-0.9) 12/17/22 11:57 GFR Calculation 127.5 mL/min (90-130) 12/17/22 11:57 Glucose 111 mg/dL (65-115) 12/17/22 11:57 Calculated Osmolality 265 mOsm/kg (285-295) L 12/17/22 11:57 Calcium 10.3 mg/dL (8.5-10.5) 12/17/22 11:57 Magnesium 3.1 mg/dL (1.7-2.3) H 12/17/22 11:57 Total Bilirubin 0.8 mg/dL (0.15-1.2) 12/17/22 11:57 AST 24 U/L (0-32) 12/17/22 11:57 ALT 21 U/L (0-33) 12/17/22 11:57 Alkaline Phosphatase 96 U/L (35-105) 12/17/22 11:57 Total Protein 9.2 g/dL (6.6-8.7) H 12/17/22 11:57 Albumin 5.4 g/dL (3.5-5.2) H 12/17/22 11:57 Globulin 3.8 g/dL (1.3-4.6) 12/17/22 11:57 Lipase 30 U/L (13-60) 12/17/22 11:57 Urine Color Colorless (Yellow) 12/17/22 13:03 Urine Appearance Clear (CLEAR) 12/17/22 13:03 Urine pH 8 (5-7) H 12/17/22 13:03 Ur Specific [place] 1.010 (1.005-1.030) 12/17/22 13:03 Urine Protein Neg (Negative) 12/17/22 13:03 Urine Glucose (UA) Norm (Normal) 12/17/22 13:03 Urine Ketones Negative (Negative) 12/17/22 13:03 Urine Blood Neg (Negative) 12/17/22 13:03 Urine Nitrate Negative (Negative) 12/17/22 13:03 Urine Bilirubin Neg (Negative) 12/17/22 13:03 Prot Sulfosalicylic Acd Negative (Negative) 12/17/22 13:03 Urine Urobilinogen Norm mg/dL (Negative) 12/17/22 13:03 Ur Leukocyte Esterase Negative (Negative) 12/17/22 13:03 Discharge Plan Discharge Patient Disposition: Home Clinical Impression: Acute hypokalemia, Gastroenteritis Condition: Stable Prescriptions: New potassium chloride 20 mEq tablet extended release 20 meq PO BID Qty: 10 0RF No Action escitalopram oxalate [Lexapro] 20 mg tablet 20 mg PO DAILY buspirone 5 mg tablet 5 mg PO BID hydroxyzine HCl 25 mg tablet 25 mg PO BID PRN (Reason: Anxiety) Discharge Orders: Discharge ED (Routine); Ordered 12/17/22 Ordered By: Raul Hwang Referrals: Osman Corral MD [Primary Care Provider] - 1 week Patient Instructions: Hypokalemia (ED), Gastroenteritis (ED) Coding Level of Care Code ED [employer] [place] for Shelly Concepcion
[2022-12-17] MEDS: sodium chloride 0.9% 1,000 ML 999 ML IV (11:59)
[2022-12-17] MEDS: metoclopramide 5 mg/mL SDV 2 mL 10 MG IVP (11:59)
[2022-12-17 12:11] LABS: Basophils % 0.1 %; Eosinophils % 0.2 %; Hematocrit 45.3 % (37.0-47.0); Lymphocytes # 2.1 10^3/uL (1.5-6.5); Lymphocytes % 20.7 %; Mean Corpuscular HGB Conc 35.3 g/dL (30.0-36.0); Mean Corpuscular Hemoglobin 29.6 pg (28.0-34.0); Mean Corpuscular Volume 83.7 fl (81-99); Mean Platelet Volume 11.9 fL (7.4-10.4); Monocytes % 9.4 %; Neutrophils # 6.97 10^3/uL (1.8-8.0); Neutrophils % 69.3 %; Nucleated Red Blood Cells % 0 %; Platelet Count 380 10^3/cmm (130-400); Red Blood Count 5.41 10^6/uL (4.1-5.3); Red Cell Distribution Width 11.9 % (12.1-15.1); White Blood Count 10.1 10^3/uL (4.5-13.0)
[2022-12-17 12:44] LABS: Alanine Aminotransferase 21 U/L (0-33); Albumin Level 5.4 g/dL (3.5-5.2); Alkaline Phosphatase 96 U/L (35-105); Anion Gap 17.5 (5-19); Aspartate Amino Transferase 24 U/L (0-32); Blood Urea Nitrogen 14 mg/dL (6-20); Calcium 10.3 mg/dL (8.5-10.5); Carbon Dioxide 34 mmol/L (22-29); Chloride 78 mmol/L (98-107); Globulin 3.8 g/dL (1.3-4.6); Glomerular Filtration Rate 127.5 mL/min (90-130); Glucose 111 mg/dL (65-115); Lipase 30 U/L (13-60); Magnesium 3.1 mg/dL (1.7-2.3); Osmolality Calculated 265 mOsm/kg (285-295); Sodium 127 mmol/L (136-145); Total Bilirubin 0.8 mg/dL (0.15-1.2); Total Protein 9.2 g/dL (6.6-8.7)
[2022-12-17 12:52] LABS: Potassium 2.5 mmol/L (3.5-5.1)
[2022-12-17] MEDS: potassium chloride ER 20 mEq Tablet 40 MEQ PO (13:02)
[2022-12-17] MEDS: ketorolac 30 mg/mL INJ IVP (13:19)
[2022-12-17 14:10] LABS: Add Urine Microscopic? NO; Charge for UA Resulting for Rev
[2022-12-17 14:16] LABS: Bilirubin Urine Neg (Negative); Blood Urine Neg (Negative); Glucose Urine UA Norm (Normal); Ketones Urine Negative (Negative); Leukocyte Esterase Urine Negative (Negative); Nitrate Urine Negative (Negative); Protein Urine Neg (Negative); Sulfosalicylic Acid Urine Negative (Negative); Urine Appearance Clear (CLEAR); Urine Color Colorless (Yellow); Urobilinogen Urine Norm (Negative); pH Urine 8 (5-7)
== END 2022-12-17 14:56 | disposition home or self-care (01) ==
PROVIDERS: Emergency Provider Emergency Medicine; PCP Family Medicine
DX: E87.6 Hypokalemia (principal); K52.9 Noninfective gastroenteritis and colitis, unspecified; F17.290 Nicotine dependence, other tobacco product, uncomplicated
CPT/HCPCS: 80053; 81003; 83690; 83735; 85025; 96361; 96374; 96375; 99284; J1885; J2765; J7030

== ENCOUNTER 2023-03-23 18:10 | Emergency (ER) | payer BC, SELFPAY ==
[2023-03-23 18:14] VITALS: BP 120/78; PULSE 101; RESP 18; TEMP 36.6; O2SAT 99; BMI 14.5
[2023-03-23 19:16] LABS: Basophils % 0.2 %; Eosinophils % 0.1 %; Hematocrit 36.1 % (37.0-47.0); Hemoglobin 11.8 g/dL (11.5-15.3); Lymphocytes # 1.4 10^3/uL (1.5-6.5); Lymphocytes % 8.2 %; Mean Corpuscular HGB Conc 32.7 g/dL (30.0-36.0); Mean Corpuscular Hemoglobin 30.3 pg (28.0-34.0); Mean Corpuscular Volume 92.8 fl (81-99); Mean Platelet Volume 12.4 fL (7.4-10.4); Monocytes # 0.5 10^3/uL (0.2-0.9); Neutrophils # 15.02 10^3/uL (1.8-8.0); Neutrophils % 88.1 %; Nucleated Red Blood Cells % 0 %; Platelet Count 286 10^3/cmm (130-400); Red Blood Count 3.89 10^6/uL (4.1-5.3); Red Cell Distribution Width 13.2 % (12.1-15.1); White Blood Count 17.1 10^3/uL (4.5-13.0)
[2023-03-23 19:45] LABS: Alanine Aminotransferase 15 U/L (0-33); Albumin Level 4.9 g/dL (3.5-5.2); Alkaline Phosphatase 99 U/L (35-105); Aspartate Amino Transferase 20 U/L (0-32); Blood Urea Nitrogen 13 mg/dL (6-20); Calcium 9.7 mg/dL (8.5-10.5); Carbon Dioxide 23 mmol/L (22-29); Chloride 103 mmol/L (98-107); Globulin 2.6 g/dL (1.3-4.6); Glomerular Filtration Rate 127.5 mL/min (90-130); Glucose 154 mg/dL (65-115); Lipase 15 U/L (13-60); Osmolality Calculated 291 mOsm/kg (285-295); Sodium 139 mmol/L (136-145); Total Bilirubin 0.2 mg/dL (0.15-1.2); Total Protein 7.5 g/dL (6.6-8.7)
[2023-03-23 19:46] LABS: Anion Gap 17.3 (5-19); Potassium 4.3 mmol/L (3.5-5.1)
[2023-03-23 19:50] LABS: HCG, Serum Qual Negative (Negative)
--- NOTE | 2023-03-23 21:11 | ED_ITS ---
HPI - Nausea/Vomiting/Diarrhea General: Chief complaint: Nausea/Vomiting/Diarrhea Stated complaint: n/v Time Seen by Provider: 03/23/23 20:53 Source: patient Mode of arrival: ambulatory History of Present Illness: 22-year-old female who presents to the emergency room with complaints of persistent nausea vomiting she states she gets this about once a month. Is been going on for a long period of time. She does use marijuana daily. Patient is extremely underweight her BMI is 14.5. She has several other visits for similar symptoms. She had 2 previous abdominal CTs last year as well as a gallbladder ultrasound all of which were unremarkable. She denies any hematochezia melena hematemesis coffee-ground emesis no dysuria urgency or frequency. MD elicited complaint: nausea and vomiting Onset (ago): hour(s) Description of vomiting: watery and bilious Associated nausea: Yes Associated abdominal pain: Yes Location of pain: Diffuse Severity: moderate Quality: cramping Exacerbating factors: none Relieving factors: none Associated symtoms: Reports nausea; Denies altered mental status, anxiety, bloating, change in vision, chest pain, cough, diaphoresis, decreased urine output, dizziness, dysuria, epistaxis, fat igue, fecal incontinence, fevers/chills, headache(s), anorexia, malaise, myalgias, numbness, palpitations, rash, short of breath, syncope, tenesmus, tinnitus or weakness Review of Systems Const: Denies: fever(s), chills, fatigue, malaise or diaphoresis Eyes: Denies: change in vision ENMT: Denies: tinnitus or epistaxis Card: Denies: chest pain, palpitations or syncope GI: Reports: abdominal pain, nausea and vomiting; Denies: hematemesis, bloating or fecal incontinence : Denies: dysuria, urinary frequency or urinary urgency Neuro: Denies: headache(s) or dizziness Psych: Denies: anxiety PFSH ED PFSH: Medical History No significant past medical history Surgical History No significant past surgical history Social History Smoking and tobacco status: current every day smoker e-cigarettes E-Cigarette Details: vaporizer device and with nicotine Alcohol intake: current Alcohol intake frequency: holidays/special occasions only Female Reproductive History: Date of last menstrual period: 03/20/23 Physical Exam Const: EXAM LIMITATIONS: no altered mental status GENERAL APPEARANCE: cooperative and comfortable ORIENTATION/CONSCIOUSNESS: Yes awake, Yes oriented to person, Yes oriented to place and Yes oriented to time HENMT: COMMON NORMALS: normocephalic, atraumatic and hearing grossly normal bilaterally HEAD & SCALP: normocephalic and atraumatic Resp: COMMON NORMALS: normal respiratory effort, No retractions, No use of accessory muscles and clear to auscultation bilaterally AUSCULTATION: clear to auscultation bilaterally Cardio: COMMON NORMALS: regular rate, regular rhythm and No murmurs present (Cardio) RATE: regular rate RHYTHM: regular rhythm GI: COMMON NORMALS: No hepatosplenomegaly present AUSCULTATION: Yes normoac tive bowel sounds PALPATION: Yes Tenderness to palpation present (GI) (Di ffuse), No Guarding due to palpation present (GI) and Yes No hepatosplenomegaly present Extremity: COMMON NORMALS: normal to inspection, capillary refill normal, no clubbing, cyanosis or edema, no calf tenderness and no pedal edema Neuro: SENSORIUM/ORIENTATION: Yes oriented to person, Yes oriented to place and Yes oriented to time Skin: COMMON NORMALS: no rashes or lesions noted GENERAL SKIN EXAM: no rashes or lesions noted Course Vital Signs: Vital signs: Vital Signs Temperature 97.9 F 03/23/23 18:14 Pulse Rate 87 03/23/23 22:45 Respiratory Rate 16 03/23/23 22:45 Blood Pressure 114/76 03/23/23 22:45 Pulse Oximetry 97 03/23/23 22:46 Oxygen Delivery Me thod Room Air 03/23/23 18:14 MDM - Nausea/Vomiting/Diarrhea Medical Decision Making Patient given fluids Haldol Ativan and promethazine for antiemetics she is feeling better and nausea has stopped her abdominal pain resolved CT of the abdomen negative she does have some leukocytosis which I think is a result of her hyperemesis. Her test was negative. She denies any dysuria urgency or frequency or flank pain. Medical Records I reviewed the patient's medical records. Lab Data I reviewed the patient's lab results. 03/23/23 18:55 03/23/23 18:55 Radiology Impressions Abdomen/Pelvis CT 03/23/23 21:12 IMPRESSION: 1. Prominent uterus with prominent endometrial cavity, this may be related to the patient's cycle, recommend clinical correlation. 2. No evidence of obstruction. 3. Slightly smaller right ovarian follicular cyst. Laboratory Results WBC 17.1 10^3/uL (4.5-13.0) H 03/23/23 18:55 RBC 3.89 10^6/uL (4.1-5.3) L 03/23/23 18:55 Hgb 11.8 g/dL (11.5-15.3) 03/23/23 18:55 Hct 36.1 % (37.0-47.0) L 03/23/23 18:55 MCV 92.8 fl (81-99) 03/23/23 18:55 MCH 30.3 pg (28.0-34.0) 03/23/23 18:55 MCHC 32.7 g/dL (30.0-36.0) 03/23/23 18:55 RDW 13.2 % (12.1-15.1) 03/23/23 18:55 Plt Count 286 10^3/cmm (130-400) 03/23/23 18:55 MPV 12.4 fL (7.4-10.4) H 03/23/23 18:55 Neut % (Auto) 88.1 % 03/23/23 18:55 Lymph % (Auto) 8.2 % 03/23/23 18:55 [place] % (Auto) 3.0 % 03/23/23 18:55 Eos % (Auto) 0.1 % 03/23/23 18:55 Baso % (Auto) 0.2 % 03/23/23 18:55 Neut # (Auto) 15.02 10^3/uL (1.8-8.0) H 03/23/23 18:55 Lymph # (Auto) 1.4 10^3/uL (1.5-6.5) L 03/23/23 18:55 [place] # (Auto) 0.5 10^3/uL (0.2-0.9) 03/23/23 18:55 Eos # (Auto) 0.0 10^3/uL (0.0-0.8) 03/23/23 18:55 Baso # (Auto) 0.0 10^3/uL (0.0-0.1) 03/23/23 18:55 Nucleated RBC % (auto) 0 % 03/23/23 18:55 Nucleated RBCs # 0.0 /100WBC 03/23/23 18:55 Sodium 139 mmol/L (136-145) 03/23/23 18:55 Potassium 4.3 mmol/L (3.5-5.1) 03/23/23 18:55 Chloride 103 mmol/L (98-107) 03/23/23 18:55 Carbon Dioxide 23 mmol/L (22-29) 03/23/23 18:55 Anion Gap 17.3 (5-19) 03/23/23 18:55 BUN 13 mg/dL (6-20) 03/23/23 18:55 Creatinine 0.6 mg/dL (0.5-0.9) 03/23/23 18:55 GFR Calculation 127.5 mL/min (90-130) 03/23/23 18:55 Glucose 154 mg/dL (65-115) H 03/23/23 18:55 Calculated Osmolality 291 mOsm/kg (285-295) 03/23/23 18:55 Calcium 9.7 mg/dL (8.5-10.5) 03/23/23 18:55 Total Bilirubin 0.2 mg/dL (0.15-1.2) 03/23/23 18:55 AST 20 U/L (0-32) 03/23/23 18:55 ALT 15 U/L (0-33) 03/23/23 18:55 Alkaline Phosphatase 99 U/L (35-105) 03/23/23 18:55 Total Protein 7.5 g/dL (6.6-8.7) 03/23/23 18:55 Albumin 4.9 g/dL (3.5-5.2) 03/23/23 18:55 Globulin 2.6 g/dL (1.3-4.6) 03/23/23 18:55 Lipase 15 U/L (13-60) 03/23/23 18:55 HCG, Qual Negative (Negative) 03/23/23 18:55 Discharge Plan Discharge Patient Disposition: Home Clinical Impression: Cannabinoid hyperemesis syndrome Condition: Stable Prescriptions: New promethazine 25 mg tablet 25 mg PO Q6H PRN (Reason: nausea and vomiting) Qty: 20 0RF No Action escitalopram oxalate [Lexapro] 20 mg tablet 20 mg PO DAILY buspirone 5 mg tablet 5 mg PO BID hydroxyzine HCl 25 mg tablet 25 mg PO BID PRN (Reason: Anxiety) potassium chloride 20 mEq tablet extended release 20 meq PO BID Qty: 10 0RF Discharge Orders: Discharge ED (Routine); Ordered 03/24/23 Ordered By: Fernando Umanzor Referrals: Osman Corral MD [Primary Care Provider] - Discharge Diet: Clear Liquid Discharge Activity: Increase activity as tolerated Patient Instructions: Opioid Safety, Pain Management Activity Restrictions/Additional Instructions: Clear liquid diet for 24 to 48 hours and advance as tolerated. Use promethazine as needed for nausea or vomiting. Abstain from marijuana products Coding Level of Care Code ED [employer] for Shelly Concepcion
--- NOTE | 2023-03-23 21:12 | CTR_ITS ---
PROCEDURE INFORMATION: Exam: CT Abdomen And Pelvis With Contrast Exam date and time: 03/23/2023 9:32 PM Age: 22 years old Clinical indication: Nausea and vomiting; Abdominal pain; Patient HX: Periumbilical pain with n/v. ; Additional info: Abd pain TECHNIQUE: Imaging protocol: Computed tomography of the abdomen and pelvis with contrast. Radiation optimization: All CT scans at this facility use at least one of these dose optimization techniques: automated exposure control; mA and/or kV adjustment per patient size (includes targeted exams where dose is matched to clinical indication); or iterative reconstruction. Contrast material: OMNI 350; Contrast volume: 75 ml; Contrast route: INTRAVENOUS (IV); REPORTING DATA: Count of CT and Cardiac NM exams in prior 12 months: This patient has received [address] and 0 known cardiac nuclear medicine studies in the 12 months prior to the current study. COMPARISON: CT abdomen pelvis w con* [id number] 06/05/2022 8:53 PM RADIATION DOSE METRICS: Total DLP (mGy-cm): 260.78 FINDINGS: Lungs: The visualized lung bases are well aerated with no infiltrates. There are no pneumothoraces. There are no effusions. Heart: There is no pericardial effusion. Liver: The liver is within normal limits. The portal vein is patent. Gallbladder and bile ducts: The gallbladder is distended with prominent vazquez, there is no pericholecystic fluid or gallstones. Pancreas: The pancreas is unremarkable. Spleen: Normal. No splenomegaly. Adrenal glands: Normal. No mass. Kidneys and ureters: There are no abnormal renal masses. There is no hydronephrosis. There is no hydroureter. The urinary bladder is distended without thickness of the vazquez. Stomach and bowel: There is limited intraperitoneal fat making evaluation limited however, the stomach is minimally distended. Appendix: The appendix is not visualized but there are no inflammatory changes noted in the right lower quadrant. Intraperitoneal space: There is no free intraperitoneal air. There is an extensive amount of feces in the rectum and sigmoid. There is prominence of the small bowel loops with nonobstructive pattern. There is a small amount of free fluid in the pelvis, there is no free intraperitoneal air noted. There has been no significant change when compared with the previous study. Vasculature: See Liver finding. The origins of the celiac, SMA, renals and J LUIS are patent. The iliac arteries are patent as are the iliac veins. Lymph nodes: Unremarkable. No enlarged lymph nodes. Urinary bladder: See Kidneys and ureters finding. Reproductive: The uterus is anteflexed and anteverted. There is prominence of the endometrial cavity suggesting patient's cycle, recommend clinical correlation. There is a 14.3 x 8.1 mm follicular cyst noted in the right ovary. Bones/joints: There are no abnormal lytic or blastic lesions. There are no acute fractures. The spine is well aligned. Soft tissues: Unremarkable. CT/CT abdomen pelvis w con* [id number] IMPRESSION: 1. Prominent uterus with prominent endometrial cavity, this may be related to the patient's cycle, recommend clinical correlation. 2. No evidence of obstruction. 3. Slightly smaller right ovarian follicular cyst.
[2023-03-23] MEDS: sodium chloride 0.9% 1,000 ML 999 ML IV (21:18)
[2023-03-23] MEDS: LORazepam 2 mg/mL INJ 1 mL 1 MG IVP (21:19)
[2023-03-23] MEDS: ondansetron 2 mg/ML SDV 2 mL 4 MG IVP (21:19)
[2023-03-23] MEDS: haloperidol inj 5 mg/mL INJ 1 mL 1.25 MG IVP (21:20)
[2023-03-23 21:23] VITALS: BP 113/73; PULSE 87; RESP 20; O2SAT 100
[2023-03-23] MEDS: iohexol 350 mg/mL 500 mL Btl (per mL) IV (21:34)
[2023-03-23] MEDS: haloperidol inj 5 mg/mL INJ 1 mL 3.75 MG IVP (22:43)
[2023-03-23 22:45] VITALS: BP 114/76; PULSE 87; RESP 16
[2023-03-23 22:46] VITALS: O2SAT 97
[2023-03-23] MEDS: promethazine 25 mg/mL SDV 1 mL IM (23:52)
[2023-03-24 00:51] LABS: Add Urine Microscopic? YES; Bilirubin Urine Neg (Negative); Blood Urine 3+ (Negative); Glucose Urine UA Trace (Normal); Ketones Urine 1+ (Negative); Leukocyte Esterase Urine 2+ (Negative); Nitrate Urine Negative (Negative); Protein Urine 2+ (Negative); Sulfosalicylic Acid Urine Negative (Negative); Urine Appearance Cloudy (CLEAR); Urine Color Red (Yellow); Urobilinogen Urine Norm (Negative); pH Urine 8 (5-7)
[2023-03-24 00:53] LABS: Add Urine Culture? Yes; Bacteria Urine TRACE /hpf; RBC Urine TOO NUMEROUS TO CNT /hpf (0-2); Squamous Epithelial Cell Urine 0-4 /hpf (0-5)
== END 2023-03-24 00:38 | disposition home or self-care (01) ==
PROVIDERS: Nurse Practitioner Family; Emergency Provider Family Medicine; PCP Family Medicine
DX: R11.10 Vomiting, unspecified (principal); F12.90 Cannabis use, unspecified, uncomplicated; F17.290 Nicotine dependence, other tobacco product, uncomplicated
CPT/HCPCS: 36415; 74177; 80053; 81001; 83690; 84703; 85025; 87086; 96372; 96374; 96375; 96376; 99285; J1630; J2060; J2405; J2550; J7030; Q9967

== ENCOUNTER → 2023-04-24 11:12 | Outpatient (BNVA) | payer BC, SELFPAY | PROVIDERS: PCP Family Medicine; Visit Provider Nurse Practitioner Family | DX: F41.8 Other specified anxiety disorders (principal); R63.6 Underweight; R42 Dizziness and giddiness | CPT/HCPCS: 80053; 84443; 85025 ==

== ENCOUNTER 2023-05-11 16:11 | Emergency (ER) | payer BC, SELFPAY ==
[2023-05-11 16:15] VITALS: BP 103/70; PULSE 102; RESP 28; TEMP 36.5; O2SAT 100; BMI 12.9
[2023-05-11 16:55] LABS: Basophils % 0.2 %; Eosinophils % 0.2 %; Hematocrit 35.9 % (36-47); Lymphocytes # 1.6 10^3/uL (1.5-6.5); Lymphocytes % 8.3 %; Mean Corpuscular HGB Conc 33.4 g/dL (30-55); Mean Corpuscular Hemoglobin 29.9 pg (27-33); Mean Corpuscular Volume 89.5 fl (85-98); Mean Platelet Volume 11.9 fL (7.4-10.4); Monocytes # 0.8 10^3/uL (0.2-0.9); Monocytes % 4.3 %; Neutrophils % 86.6 %; Nucleated Red Blood Cells % 0 %; Platelet Count 326 10^3/cmm (157-399); Red Blood Count 4.01 10^6/uL (3.85-5.65); Red Cell Distribution Width 13.6 % (12.1-15.1); White Blood Count 18.94 10^3/uL (4.5-13.0)
[2023-05-11 17:14] LABS: Alanine Aminotransferase 20 U/L (0-33); Alkaline Phosphatase 91 U/L (35-105); Anion Gap 18.3 (5-19); Aspartate Amino Transferase 25 U/L (0-32); Blood Urea Nitrogen 11 mg/dL (6-20); Calcium 9.3 mg/dL (8.5-10.5); Carbon Dioxide 23 mmol/L (22-29); Chloride 101 mmol/L (98-107); Globulin 2.9 g/dL (1.3-4.6); Glomerular Filtration Rate 127.5 mL/min (90-130); Glucose 175 mg/dL (65-115); Osmolality Calculated 292 mOsm/kg (285-295); Potassium 3.3 mmol/L (3.5-5.1); Sodium 139 mmol/L (136-145); Total Bilirubin 0.3 mg/dL (0.15-1.2); Total Protein 7.9 g/dL (6.6-8.7)
--- NOTE | 2023-05-11 20:50 | ED_ITS ---
HPI - Nausea/Vomiting/Diarrhea General: Chief complaint: Nausea/Vomiting/Diarrhea Stated complaint: nausea Time Seen by Provider: 05/11/23 20:47 History of Present Illness: 22-year-old female comes in with persistent nausea and vomiting starting this afternoon about 2:00. Patient has a history of cyclic vomiting syndrome. Patient does endorse the use of marijuana. Patient reports that she had a history of problems with vomiting prior to the use of marijuana. Patient appears nontoxic. Patient appears mild pain. Associated nausea: Yes Associated symtoms: Reports nausea Review of Systems General: Reports: 10 or more systems reviewed and unremarkable except in HPI and below GI: Reports: nausea and vomiting [facility] PFSH: Medical History No significant past medical history Surgical History No significant past surgical history Social History Smoking and tobacco status: current every day smoker e-cigarettes E-Cigarette Details: vaporizer device and with nicotine Alcohol intake: current Alcohol intake frequency: holidays/special occasions only Physical Exam Const: COMMON NORMALS: alert HENMT: COMMON NORMALS: normocephalic HEAD & SCALP: normocephalic Neck/C-Spine: COMMON NORMALS: full ROM Resp: COMMON NORMALS: normal respiratory effort and clear to auscultation bilaterally AUSCULTATION: clear to auscultation bilaterally Cardio: COMMON NORMALS: regular rate and regular rhythm RATE: regular rate RHYTHM: regular rhythm GI: COMMON NORMALS: Soft to palpation PALPATION: Yes Soft to palpation Extremity: COMMON NORMALS: normal to inspection Neuro: SENSORIUM/ORIENTATION: Yes alert Skin: COMMON NORMALS: turgor normal GENERAL SKIN EXAM: turgor normal Course Vital Signs: Vital signs: Vital Signs Temperature 97.7 F 05/11/23 16:15 Pulse Rate 89 05/11/23 21:14 Respiratory Rate 14 05/11/23 21:14 Blood Pressure 113/65 05/11/23 21:14 Pulse Oximetry 100 05/11/23 21:14 Oxygen Delivery Me thod Room Air 05/11/23 21:14 MDM - Nausea/Vomiting/Diarrhea Medical Decision Making 22-year-old female comes in with nausea vomiting starting this afternoon. Patient has a history of cyclic vomiting syndrome. On exam abdomen soft nontender. Skin is warm and dry. Vital signs are normal. Differential diagnosis includes gastritis, gallbladder disease, cyclic vomiting syndrome, cannabinoid hyperemesis syndrome. CMP was unremarkable. CBC noted some leukocytosis. Patient had improvement of symptoms after 1 L of IV fluids and a dose of haloperidol 3 mg. Pain and nausea was much improved. Patient was able to tolerate ice chips and sips of fluid. Recommended cessation of marijuana and a trial of metoclopramide for treatment. Patient was discharged home with instructions for follow-up. Lab Data 05/11/23 16:46 05/11/23 16:46 Laboratory Results WBC 18.94 10^3/uL (4.5-13.0) H 05/11/23 16:46 RBC 4.01 10^6/uL (3.85-5.65) 05/11/23 16:46 Hgb 12.00 g/dL (12.4-14.8) L 05/11/23 16:46 Hct 35.9 % (36-47) L 05/11/23 16:46 MCV 89.5 fl (85-98) 05/11/23 16:46 MCH 29.9 pg (27-33) 05/11/23 16:46 MCHC 33.4 g/dL (30-55) 05/11/23 16:46 RDW 13.6 % (12.1-15.1) 05/11/23 16:46 Plt Count 326 10^3/cmm (157-399) 05/11/23 16:46 MPV 11.9 fL (7.4-10.4) H 05/11/23 16:46 Neut % (Auto) 86.6 % 05/11/23 16:46 Lymph % (Auto) 8.3 % 05/11/23 16:46 [place] % (Auto) 4.3 % 05/11/23 16:46 Eos % (Auto) 0.2 % 05/11/23 16:46 Baso % (Auto) 0.2 % 05/11/23 16:46 Neut # (Auto) 16.40 10^3/uL (1.8-8.0) H 05/11/23 16:46 Lymph # (Auto) 1.6 10^3/uL (1.5-6.5) 05/11/23 16:46 [place] # (Auto) 0.8 10^3/uL (0.2-0.9) 05/11/23 16:46 Eos # (Auto) 0.0 10^3/uL (0.0-0.8) 05/11/23 16:46 Baso # (Auto) 0.0 10^3/uL (0.0-0.1) 05/11/23 16:46 Nucleated RBC % (auto) 0 % 05/11/23 16:46 Nucleated RBCs # 0.0 /100WBC 05/11/23 16:46 Sodium 139 mmol/L (136-145) 05/11/23 16:46 Potassium 3.3 mmol/L (3.5-5.1) L 05/11/23 16:46 Chloride 101 mmol/L (98-107) 05/11/23 16:46 Carbon Dioxide 23 mmol/L (22-29) 05/11/23 16:46 Anion Gap 18.3 (5-19) 05/11/23 16:46 BUN 11 mg/dL (6-20) 05/11/23 16:46 Creatinine 0.6 mg/dL (0.5-0.9) 05/11/23 16:46 GFR Calculation 127.5 mL/min (90-130) 05/11/23 16:46 Glucose 175 mg/dL (65-115) H 05/11/23 16:46 Calculated Osmolality 292 mOsm/kg (285-295) 05/11/23 16:46 Calcium 9.3 mg/dL (8.5-10.5) 05/11/23 16:46 Total Bilirubin 0.3 mg/dL (0.15-1.2) 05/11/23 16:46 AST 25 U/L (0-32) 05/11/23 16:46 ALT 20 U/L (0-33) 05/11/23 16:46 Alkaline Phosphatase 91 U/L (35-105) 05/11/23 16:46 Total Protein 7.9 g/dL (6.6-8.7) 05/11/23 16:46 Albumin 5.0 g/dL (3.5-5.2) 09/08/23 16:46 Globulin 2.9 g/dL (1.3-4.6) 05/11/23 16:46 Discharge Plan Discharge Patient Disposition: Home Clinical Impression: Cyclical vomiting with nausea Condition: Stable Prescriptions: New metoclopramide HCl 10 mg tablet 10 mg PO TID PRN (Reason: nausea and vomiting) 7 Days Qty: 20 0RF No Action dicyclomine 10 mg capsule 10 mg PO QID buspirone 10 mg tablet 10 mg PO BID Qty: 60 2RF hydroxyzine HCl 25 mg tablet 25 mg PO BID PRN (Reason: Anxiety) Qty: 60 2RF fluoxetine 20 mg capsule 20 mg PO DAILY Qty: 30 2RF potassium chloride 20 mEq tablet extended release 20 meq PO BID Qty: 10 0RF promethazine 25 mg tablet 25 mg PO Q6H PRN (Reason: nausea and vomiting) Qty: 20 0RF Discharge Orders: Discharge ED (Routine); Ordered 05/11/23 Ordered By: Hayden Mabry Referrals: Osman Corral MD [Primary Care Provider] - Discharge Diet: Advance as tolerated Discharge Activity: Increase activity as tolerated Patient Instructions: Cyclic Vomiting Syndrome (ED), Opioid Safety, Pain Management Activity Restrictions/Additional Instructions: Cyclic vomiting is often started by triggers. Triggers can be something as simple as stress. Other factors may be medication use or marijuana use. Sometimes cyclic vomiting is a migraine type syndrome. Where the vessels in the stomach constrict causing decreased movement of the stomach and vomiting. This is why I am going to try Reglan, metoclopramide, 10 mg 1 tablet 3 times a day as needed for nausea or symptoms. You may use the medicine prior to eating if you feel any nausea. Take it about 30 minutes prior and then symptoms should be improved and you should be able to eat with better comfort. Try to avoid use of marijuana as it may be a trigger. Follow-up with primary care for further instruction and evaluation. Return to ED for new concerns. Coding Level of Care Code ED Investigator Internal Affairs for Shelly Concepcion
[2023-05-11 21:14] VITALS: BP 113/65; PULSE 89; RESP 14; O2SAT 100
[2023-05-11] MEDS: haloperidol inj 5 mg/mL INJ 1 mL 3 MG IVP (21:22)
[2023-05-11] MEDS: sodium chloride 0.9% 1,000 ML 999 ML IV (21:22)
[2023-05-11 22:25] VITALS: BP 125/81; PULSE 72; O2SAT 99
[2023-05-11 23:45] VITALS: BP 119/84; PULSE 80; RESP 16; O2SAT 99
== END 2023-05-11 23:47 | disposition home or self-care (01) ==
PROVIDERS: Physician Assistant; Emergency Provider Nurse Practitioner Family; PCP Family Medicine
DX: R11.15 Cyclical vomiting syndrome unrelated to migraine (principal); F17.290 Nicotine dependence, other tobacco product, uncomplicated
CPT/HCPCS: 36415; 80053; 85025; 96374; 99284; J1630; J7030

== ENCOUNTER → 2023-05-17 11:46 | Outpatient (BNVA) | payer BC, SELFPAY | PROVIDERS: PCP Family Medicine; Visit Provider Nurse Practitioner Family | DX: D72.829 Elevated white blood cell count, unspecified (principal); R55 Syncope and collapse | CPT/HCPCS: 85025 ==

== ENCOUNTER → 2023-10-17 10:30 | Outpatient (BNVA) | payer BC, SELFPAY | PROVIDERS: PCP Family Medicine; Visit Provider Nurse Practitioner Family | DX: M25.50 Pain in unspecified joint (principal); F41.1 Generalized anxiety disorder | CPT/HCPCS: 80053; 82306; 82607; 84443; 85025; 85651; 86140; 86160; 86162; 86235; 86255; 86376; 86431 ==

== ENCOUNTER 2023-12-09 15:03 | Emergency (ER) | payer BC, SELFPAY ==
[2023-12-09 15:04] VITALS: BMI 14.6
[2023-12-09 15:06] VITALS: BP 139/112; PULSE 99; RESP 16; TEMP 36.8; O2SAT 98
--- NOTE | 2023-12-09 15:10 | ED_ITS ---
HPI - Nausea/Vomiting/Diarrhea 2 General: Chief complaint: Nausea/Vomiting/Diarrhea Stated complaint: N/V Time Seen by Provider: 12/09/23 15:05 History of Present Illness: 23-year-old female presents to the emerg ency department via EMS personnel with complaints of nausea and vomiting and abdominal cramping. She states that she is a longstanding user of marijuana and states that she smokes marijuana this morning and then was started having cyclical nausea and vomiting and abdominal cramping. She states she is had this similar problem in the past and been diagnosed with cannabis hyperemesis syndrome. Associated nausea: Yes Associated symtoms: Reports nausea Review of Systems 2 General: Reports: 10 or more systems reviewed and unremarkable except in HPI and below GI: Reports: abdominal pain, nausea and vomiting PFSH ED 2 PFSH: Medical History Psychiatric care No significant past medical history Surgical History No significant past surgical history Social History Smoking and tobacco/nicotine status: current every day tobacco/nicotine user e- cigarettes E-Cigarette Details: vaporizer device and with nicotine Alcohol intake: current Alcohol intake frequency: holidays/special occasions only Physical Exam 2 Narrative: EXAM NARRATIVE: Constitutional: the patient appears well nourished and of normal development. Vital signs as documented. No acute distress at present. Alert and oriented-to person, place, time and situation. Head, eyes, ears, nose, mouth, throat: Normocephalic, atraumatic. Pupils-equal, round, reactive to light. No scleral icterus. Normal-appearing external ears. Normal appearing nasal turbinates, no drainage. No obvious oral lesions, posterior oropharynx without erythema or exudates. Neck: Supple, trachea is midline, no lymphadenopathy, no jugular venous distension, thyromegaly, or carotid bruits. Carotid upstrokes are brisk bilaterally. Lungs: clear to auscultation to all lung [place]. Symmetrical rise and fall of chest, no obvious signs of increased work of breathing at present. Cardiac: Regular rate and rhythm, positive S1, S2. No murmurs, rubs or gallops that I can appreciate Abdomen: Soft, non-tender to palpation, normal active bowel sounds to all quadrants. No palpable masses, no organomegaly and abdominal bruits. Extremities: 2+ pulses in the upper extremities that are equal bilaterally, 2+ pulses in the lower extremities that are equal bilaterally. Non-edematous. Moves all extremities well, sensation to all extremities are noted. Skin: Warm, dry, intact. Course 2 Vital Signs: Vital signs: Vital Signs Temperature 98.2 F 12/09/23 15:06 Pulse Rate 91 12/09/23 15:56 Respiratory Rate 16 12/09/23 15:06 Blood Pressure 120/75 12/09/23 15:56 Pulse Oximetry 96 12/09/23 15:56 Oxygen Delivery Me thod Room Air 12/09/23 15:56 MDM - Nausea/Vomiting/Diarrhea Medical Decision Making Physical exam completed and documented I did obtain a CBC which resulted an elevated white blood cell count of 16.1 most likely reactive leukocytosis to her recurrent nausea and vomiting secondary to her chronic cannabis use. CMP was obtained and did demonstrate hypokalemia of 3.2 patient was provided 40 mill equivalents of potassium p.o. for replacement. Urinalysis was positive for marijuana. Patient was provided Haldol for her hyperemesis. Patient was provided extensive education and educated on the pathophysiology of cannabinoid induced hyperemesis syndrome and was strongly encouraged to discontinue use of marijuana given her reoccurring association with marijuana use followed by hyperemesis syndrome. Differential diagnosis includes gastroenteritis, cannabinoid induced hyperemesis syndrome, UTI, , Medical Records I reviewed the patient's medical records. Lab Data I reviewed the patient's lab results. 12/09/23 15:00 12/09/23 15:00 Laboratory Results WBC 16.11 10^3/uL (3.29-11.43) H 12/09/23 15:00 RBC 4.05 10^6/uL (3.85-5.65) 12/09/23 15:00 Hgb 12.20 g/dL (11.27-16.99) 12/09/23 15:00 Hct 37.5 % (36-47) 12/09/23 15:00 MCV 92.6 fl (85-98) 12/09/23 15:00 MCH 30.1 pg (27-33) 12/09/23 15:00 MCHC 32.5 g/dL (30-55) 12/09/23 15:00 RDW 13.4 % (12.1-15.1) 12/09/23 15:00 Plt Count 356 10^3/cmm (157-399) 12/09/23 15:00 MPV 12.3 fL (7.4-10.4) H 12/09/23 15:00 Neut % (Auto) 77.6 % 12/09/23 15:00 Lymph % (Auto) 15.8 % 12/09/23 15:00 [place] % (Auto) 5.7 % 12/09/23 15:00 Eos % (Auto) 0.1 % 12/09/23 15:00 Baso % (Auto) 0.4 % 12/09/23 15:00 Neut # (Auto) 12.50 10^3/uL (1.8-7.7) H 12/09/23 15:00 Lymph # (Auto) 2.5 10^3/uL (0.8-4.8) 12/09/23 15:00 [place] # (Auto) 0.9 10^3/uL (0.2-0.9) 12/09/23 15:00 Eos # (Auto) 0.0 10^3/uL (0.0-0.8) 12/09/23 15:00 Baso # (Auto) 0.1 10^3/uL (0.0-0.1) 12/09/23 15:00 Nucleated RBC % (auto) 0 % 12/09/23 15:00 Nucleated RBCs # 0.0 /100WBC 12/09/23 15:00 Sodium 139 mmol/L (136-145) 12/09/23 15:00 Potassium 3.2 mmol/L (3.5-5.1) L 12/09/23 15:00 Chloride 100 mmol/L (98-107) 12/09/23 15:00 Carbon Dioxide 25 mmol/L (22-29) 12/09/23 15:00 Anion Gap 17.2 (5-19) 12/09/23 15:00 BUN 10 mg/dL (6-20) 12/09/23 15:00 Creatinine 0.5 mg/dL (0.5-0.9) 12/09/23 15:00 GFR Calculation 155.7 mL/min (90-130) H 12/09/23 15:00 Glucose 156 mg/dL (65-115) H 12/09/23 15:00 Calculated Osmolality 290 mOsm/kg (285-295) 12/09/23 15:00 Calcium 9.6 mg/dL (8.5-10.5) 12/09/23 15:00 Total Bilirubin 0.3 mg/dL (0.15-1.2) 12/09/23 15:00 AST 26 U/L (0-32) 12/09/23 15:00 ALT 25 U/L (0-33) 12/09/23 15:00 Alkaline Phosphatase 102 U/L (35-105) 12/09/23 15:00 Total Protein 7.5 g/dL (6.6-8.7) 12/09/23 15:00 Albumin 4.9 g/dL (3.5-5.2) 12/09/23 15:00 Globulin 2.6 g/dL (1.3-4.6) 12/09/23 15:00 HCG, Qual Negative (Negative) 12/09/23 16:02 Urine Color Colorless (Yellow) 12/09/23 16:02 Urine Appearance Clear (CLEAR) 12/09/23 16:02 Urine pH 8 (5-7) H 12/09/23 16:02 Ur Specific [place] 1.015 (1.005-1.030) 12/09/23 16:02 Urine Protein Neg (Negative) 12/09/23 16:02 Urine Glucose (UA) 1+ (Normal) H 12/09/23 16:02 Urine Ketones 1+ (Negative) H 12/09/23 16:02 Urine Blood Neg (Negative) 12/09/23 16:02 Urine Nitrate Negative (Negative) 12/09/23 16:02 Urine Bilirubin Neg (Negative) 12/09/23 16:02 Prot Sulfosalicylic Acd Negative (Negative) 12/09/23 16:02 Urine Urobilinogen Norm mg/dL (Negative) 12/09/23 16:02 Ur Leukocyte Esterase Negative (Negative) 12/09/23 16:02 Urine Opiates Screen Negative ng/mL (Negative) 12/09/23 16:02 Ur Barbiturates Screen Negative ng/mL (Negative) 12/09/23 16:02 Ur Phencyclidine Scrn Negative ng/mL (Negative) 12/09/23 16:02 Ur Amphetamines Screen Negative ng/mL (Negative) 12/09/23 16:02 U Benzodiazepines Scrn Negative ng/mL (Negative) 12/09/23 16:02 Urine Cocaine Screen Negative ng/mL (Negative) 12/09/23 16:02 U Marijuana (THC) Screen Positive ng/mL (Negative) H 12/09/23 16:02 No radiology studies performed this visit Discharge Plan Discharge Patient Disposition: Home Clinical Impression: Cannabinoid hyperemesis syndrome, Nausea & vomiting, Abdominal cramping, Acute hypokalemia Condition: Stable Prescriptions: New capsaicin 0.1 % cream 1 applic topical BID Qty: 56.6 0RF Rx Instructions: do not wash area for at least 30 min after application No Action dicyclomine 10 mg capsule 10 mg PO QID sertraline [Zoloft] 100 mg tablet 100 mg PO DAILY Qty: 30 2RF Rx Instructions: Take 1/2 tab daily for 2 weeks then a full tab daily mirtazapine 7.5 mg tablet 7.5 mg PO .HS Qty: 30 2RF hydroxyzine HCl 25 mg tablet 25 mg PO BID PRN (Reason: Anxiety) Qty: 60 2RF cholecalciferol (vitamin D3) 1,250 mcg (50,000 unit) capsule 50,000 unit PO .once weekly Qty: 4 2RF Discharge Orders: Discharge ED (Routine); Ordered 12/09/23 Ordered By: Ney Heredia Referrals: Osman Corral MD [Primary Care Provider] - Discharge Diet: Usual diet Discharge Activity: Resume usual activity Patient Instructions: Opioid Safety, Pain Management Activity Restrictions/Additional Instructions: Activity Restrictions/Additional Instructions: Thank you for choosing [facility] for your healthcare needs today. Please realize that you were seen in the Emergency Department and that we are providing you with an emergency medical screening exam and this may not be a complete and all inclusive of all the testing and or medical work-up that you may need to determine your ailment or severity of your illness. It is very important that you follow-up as instructed with your Primary care provider or Specialist for additional evaluation and to discuss your medical treatment plan. You may return to the Emergency Department should you have concerns or if your condition changes or worsens in any way. Coding Level of Care Code ED Button Tacker for Shelly Concepcion
[2023-12-09 15:27] LABS: Basophils # 0.1 10^3/uL (0.0-0.1); Basophils % 0.4 %; Eosinophils % 0.1 %; Hematocrit 37.5 % (36-47); Lymphocytes # 2.5 10^3/uL (0.8-4.8); Lymphocytes % 15.8 %; Mean Corpuscular HGB Conc 32.5 g/dL (30-55); Mean Corpuscular Hemoglobin 30.1 pg (27-33); Mean Corpuscular Volume 92.6 fl (85-98); Mean Platelet Volume 12.3 fL (7.4-10.4); Monocytes # 0.9 10^3/uL (0.2-0.9); Monocytes % 5.7 %; Neutrophils % 77.6 %; Nucleated Red Blood Cells % 0 %; Platelet Count 356 10^3/cmm (157-399); Red Blood Count 4.05 10^6/uL (3.85-5.65); Red Cell Distribution Width 13.4 % (12.1-15.1); White Blood Count 16.11 10^3/uL (3.29-11.43)
[2023-12-09] MEDS: sodium chloride 0.9% 1,000 ML 999 ML IV (15:43)
[2023-12-09 15:46] LABS: Alanine Aminotransferase 25 U/L (0-33); Albumin Level 4.9 g/dL (3.5-5.2); Alkaline Phosphatase 102 U/L (35-105); Anion Gap 17.2 (5-19); Aspartate Amino Transferase 26 U/L (0-32); Blood Urea Nitrogen 10 mg/dL (6-20); Calcium 9.6 mg/dL (8.5-10.5); Carbon Dioxide 25 mmol/L (22-29); Chloride 100 mmol/L (98-107); Creatinine Clr Calc Pharmacy 101.9564; Globulin 2.6 g/dL (1.3-4.6); Glomerular Filtration Rate 155.7 mL/min (90-130); Glucose 156 mg/dL (65-115); Osmolality Calculated 290 mOsm/kg (285-295); Potassium 3.2 mmol/L (3.5-5.1); Sodium 139 mmol/L (136-145); Total Bilirubin 0.3 mg/dL (0.15-1.2); Total Protein 7.5 g/dL (6.6-8.7)
[2023-12-09 15:56] VITALS: BP 120/75; PULSE 91; O2SAT 96
[2023-12-09 16:05] LABS: Add Urine Microscopic? NO; Charge for UA Resulting for Rev
[2023-12-09 16:09] LABS: Urine Appearance Clear (CLEAR); Urine Color Colorless (Yellow); pH Urine 8 (5-7)
[2023-12-09 16:10] LABS: Bilirubin Urine Neg (Negative); Blood Urine Neg (Negative); Glucose Urine UA 1+ (Normal); Ketones Urine 1+ (Negative); Leukocyte Esterase Urine Negative (Negative); Nitrate Urine Negative (Negative); Protein Urine Neg (Negative); Specific Gravity, Urine 1.015 (1.005-1.030); Sulfosalicylic Acid Urine Negative (Negative); Urobilinogen Urine Norm (Negative)
[2023-12-09 16:16] LABS: Amphetamines Screen Urine Negative (Negative); Barbiturates Screen Urine Negative (Negative); Benzodiazepines Screen Urine Negative (Negative); Cocaine Screen Urine Negative (Negative); HCG Qualitative Urine. Negative (Negative); Opiate Screen Urine Negative (Negative); PCP Screen Urine Negative (Negative); THC Screen Urine Positive (Negative)
[2023-12-09] MEDS: haloperidol inj 5 mg/mL INJ 1 mL 2.5 MG IVP (16:26)
[2023-12-09] MEDS: potassium chloride ER 20 mEq Tablet 40 MEQ PO (16:27)
== END 2023-12-09 17:20 | disposition home or self-care (01) ==
PROVIDERS: Emergency Provider Internal Medicine; PCP Family Medicine
DX: R11.2 Nausea with vomiting, unspecified (principal); F12.90 Cannabis use, unspecified, uncomplicated; E87.6 Hypokalemia; F17.290 Nicotine dependence, other tobacco product, uncomplicated
CPT/HCPCS: 80053; 80306; 81003; 81025; 85025; 96374; 99284; J1630; J7030

== ENCOUNTER 2023-12-19 15:30 | Emergency (ER) | payer BC, SELFPAY ==
[2023-12-19 15:33] VITALS: BP 102/71; PULSE 117; RESP 16; TEMP 36.8; O2SAT 98
[2023-12-19 15:57] LABS: Add Urine Microscopic? NO; Charge for UA Resulting for Rev
[2023-12-19 15:57] LABS: Basophils # 0.1 10^3/uL (0.0-0.1); Basophils % 0.6 %; Eosinophils % 0.1 %; Hematocrit 44.4 % (36-47); Lymphocytes # 2.8 10^3/uL (0.8-4.8); Lymphocytes % 23.6 %; Mean Corpuscular HGB Conc 33.6 g/dL (30-55); Mean Corpuscular Hemoglobin 30.3 pg (27-33); Mean Corpuscular Volume 90.2 fl (85-98); Monocytes # 0.7 10^3/uL (0.2-0.9); Monocytes % 6.3 %; Neutrophils # 8.12 10^3/uL (1.8-7.7); Neutrophils % 68.9 %; Nucleated Red Blood Cells % 0 %; Platelet Count 404 10^3/cmm (157-399); Red Blood Count 4.92 10^6/uL (3.85-5.65); Red Cell Distribution Width 12.8 % (12.1-15.1); White Blood Count 11.78 10^3/uL (3.29-11.43)
[2023-12-19 16:15] LABS: Urine Color Light yellow (Yellow)
[2023-12-19 16:16] LABS: Bilirubin Urine Neg (Negative); Blood Urine Neg (Negative); Glucose Urine UA Norm (Normal); Ketones Urine Negative (Negative); Leukocyte Esterase Urine Negative (Negative); Nitrate Urine Negative (Negative); Protein Urine Neg (Negative); Urine Appearance Clear (CLEAR); Urobilinogen Urine Norm (Negative); pH Urine 7 (5-7)
[2023-12-19 16:20] LABS: Alanine Aminotransferase 21 U/L (0-33); Albumin Level 5.4 g/dL (3.5-5.2); Alkaline Phosphatase 93 U/L (35-105); Anion Gap 18.1 (5-19); Aspartate Amino Transferase 20 U/L (0-32); Blood Urea Nitrogen 7 mg/dL (6-20); Calcium 10.2 mg/dL (8.5-10.5); Carbon Dioxide 30 mmol/L (22-29); Chloride 88 mmol/L (98-107); Creatinine Clr Calc Pharmacy 64.6336; Globulin 3.2 g/dL (1.3-4.6); Glomerular Filtration Rate 105.6 mL/min (90-130); Glucose 103 mg/dL (65-115); HCG, Serum Qual Negative (Negative); Lipase 16 U/L (13-60); Osmolality Calculated 274 mOsm/kg (285-295); Potassium 3.1 mmol/L (3.5-5.1); Sodium 133 mmol/L (136-145); Total Bilirubin 0.6 mg/dL (0.15-1.2); Total Protein 8.6 g/dL (6.6-8.7)
--- NOTE | 2023-12-19 16:22 | ED_ITS ---
HPI - Nausea/Vomiting/Diarrhea 2 General: Chief complaint: Nausea/Vomiting/Diarrhea Stated complaint: vomiting Time Seen by Provider: 12/19/23 16:08 Source: patient Mode of arrival: ambulatory Limitations: no limitations History of Present Illness: Patient is a 23-year-old female presents to ED today with complaint of nausea and vomiting. She states she has had the symptoms for the past 10 days. Patient states she has had cyclical cycles of nausea and vomiting ever since the age of 16. She states nobody has ever been able to figure out what is wrong . Patient has been diagnosed with cannabis hyperemesis syndrome previously. She states she has not used marijuana over the past 10 days. She is not having any diarrhea. No fevers. She was seen here in the emergency department a few days ago for identical symptoms. She saw her primary care provider earlier today who instructed her to come to the ED for concerns of dehydration. MD elicited complaint: nausea and vomiting Pertinent past history: cyclical vomiting Onset (ago): day(s) Associated nausea: Yes Associated abdominal pain: Yes Location of pain: Diffuse Radiation: diffuse Pain consistency: intermittent Severity: mild Quality: cramping Exacerbating factors: eating Relieving factors: none Associated symtoms: Reports nausea; Denies chest pain, dizziness, dysuria, fatigue, headache(s) or malaise Review of Systems 2 Const: Denies: fever(s), chills, body aches, fatigue or malaise Card: Denies: chest pain Resp: Denies: dyspnea GI: Reports: abdominal pain, nausea, vomiting and GI cramping; Denies: hematemesis or change in bowel habits : Denies: flank pain, difficulty voiding, dysuria, urinary frequency, urinary urgency or urinary hesitancy Musc: Denies: neck pain, back pain, extremity pain or joint pain Skin/Breast: Denies: rash Neuro: Denies: headache(s), numbness in extremities, weakness in extremities, sensory changes or dizziness PFSH ED 2 PFSH: Medical History Psychiatric care No significant past medical history Surgical History No significant past surgical history Social History Smoking and tobacco/nicotine status: current every day tobacco/nicotine user e- cigarettes E-Cigarette Details: vaporizer device and with nicotine Alcohol intake: current Alcohol intake frequency: holidays/special occasions only Female Reproductive History: Date of last menstrual period: 12/12/23 Physical Exam 2 Const: COMMON NORMALS: no limitations and alert GENERAL APPEARANCE: c ooperative NUTRITIONAL APPEARANCE: overweight ORIENTATION/CONSCIOUSNESS: Y es awake, Yes oriented to person, Yes oriented to place and Yes oriented to time HENMT: COMMON NORMALS: normocephalic and atraumatic HEAD & SCALP: normal to inspection, normocephalic and atraumatic Eye: COMMON NORMALS: no scleral icterus GENERAL EYE: appearance normal, both eyes and all related structures Neck/C-Spine: COMMON NORMALS: full ROM and no lymphadenopathy GENERAL: Yes normal visual inspection Resp: COMMON NORMALS: normal respiratory effort and clear to auscultation bilaterally AUSCULTATION: clear to auscultation bilaterally Cardio: COMMON NORMALS: regular rhythm RATE: tachycardic RHYTHM: regular rhythm GI: COMMON NORMALS: Normal to inspection, nondistended, normoactive bowel sounds present, Soft to palpation and No hepatosplenomegaly present I NSPECTION: Yes normal to inspection AUSCULTATION: Yes normoactive bowel sounds PALPATION: Yes Soft to palpation, Yes Tenderness to palpation present (GI) (diffusely-non surgical exam), No Guarding due to palpation present (GI), No Rigid due to palpation and Yes No hepatosplenomegaly present : COMMON NORMALS: Yes no CVA tenderness BLADDER/KIDNEY EXAM: Yes no CVA tenderness Back/Pelvis: COMMON NORMALS: no CVA tenderness Extremity: GENERAL: Yes normal exam except as noted Neuro: AG COMA SCALE: document GCS findings Ag coma scale eye opening: Spontaneous [place] coma scale verbal response: Orientated [place] coma scale motor response: Obey commands [place] coma scale total score: 15 COMMON NORMALS: moves all extremities, no focal motor deficits and no sensory deficits noted SENSORIUM/ORIENTATION: Yes alert, Yes oriented to person, Yes oriented to place and Yes oriented to time Skin: COMMON NORMALS: no rashes or lesions noted GENERAL SKIN EXAM: no rashes or lesions noted Course 2 Vital Signs: Vital signs: Vital Signs Temperature 98.3 F 12/19/23 15:33 Pulse Rate 117 H 12/19/23 15:33 Respiratory Rate 16 12/19/23 15:33 Blood Pressure 102/71 12/19/23 15:33 Pulse Oximetry 98 12/19/23 15:33 Oxygen Delivery Me thod Room Air 12/19/23 15:33 MDM - Nausea/Vomiting/Diarrhea Medical Decision Making Patient here for nausea and vomiting over the past 10 days. Patient was given a liter of IV fluids as well as Ativan/Haldol. Patient reportedly feels quite a bit better. She was able to hold down Sprite and crackers here. Blood work overall is unremarkable. Mild electrolyte derangements most likely secondary to her volume loss. She was given oral potassium prior to discharge. UA is clear. There is no need for emergent abdominal/pelvis imaging at this time. Abdomen is nonsurgical on exam. She will be sent home with Ativan to help with her nausea at home as I suspect this is from her chronic cannabis use. She has been diligent about abstaining from this and has not used over the past 10 days. She states she has Zofran and Promethazine at home that have not been working. Return ED precautions given. Medical Records I reviewed the patient's medical records. Lab Data I reviewed the patient's lab results. 12/19/23 15:50 12/19/23 15:50 Laboratory Results WBC 11.78 10^3/uL (3.29-11.43) H 12/19/23 15:50 RBC 4.92 10^6/uL (3.85-5.65) 12/19/23 15:50 Hgb 14.90 g/dL (11.27-16.99) 12/19/23 15:50 Hct 44.4 % (36-47) 12/19/23 15:50 MCV 90.2 fl (85-98) 12/19/23 15:50 MCH 30.3 pg (27-33) 12/19/23 15:50 MCHC 33.6 g/dL (30-55) 12/19/23 15:50 RDW 12.8 % (12.1-15.1) 12/19/23 15:50 Plt Count 404 10^3/cmm (157-399) H 12/19/23 15:50 MPV 11.0 fL (7.4-10.4) H 12/19/23 15:50 Neut % (Auto) 68.9 % 12/19/23 15:50 Lymph % (Auto) 23.6 % 12/19/23 15:50 [place] % (Auto) 6.3 % 12/19/23 15:50 Eos % (Auto) 0.1 % 12/19/23 15:50 Baso % (Auto) 0.6 % 12/19/23 15:50 Neut # (Auto) 8.12 10^3/uL (1.8-7.7) H 12/19/23 15:50 Lymph # (Auto) 2.8 10^3/uL (0.8-4.8) 12/19/23 15:50 [place] # (Auto) 0.7 10^3/uL (0.2-0.9) 12/19/23 15:50 Eos # (Auto) 0.0 10^3/uL (0.0-0.8) 12/19/23 15:50 Baso # (Auto) 0.1 10^3/uL (0.0-0.1) 12/19/23 15:50 Nucleated RBC % (auto) 0 % 12/19/23 15:50 Nucleated RBCs # 0.0 /100WBC 12/19/23 15:50 Sodium 133 mmol/L (136-145) L 12/19/23 15:50 Potassium 3.1 mmol/L (3.5-5.1) L 12/19/23 15:50 Chloride 88 mmol/L (98-107) L 12/19/23 15:50 Carbon Dioxide 30 mmol/L (22-29) H 12/19/23 15:50 Anion Gap 18.1 (5-19) 12/19/23 15:50 BUN 7 mg/dL (6-20) 12/19/23 15:50 Creatinine 0.7 mg/dL (0.5-0.9) 12/19/23 15:50 GFR Calculation 105.6 mL/min (90-130) 12/19/23 15:50 Glucose 103 mg/dL (65-115) 12/19/23 15:50 Calculated Osmolality 274 mOsm/kg (285-295) L 12/19/23 15:50 Calcium 10.2 mg/dL (8.5-10.5) 12/19/23 15:50 Total Bilirubin 0.6 mg/dL (0.15-1.2) 12/19/23 15:50 AST 20 U/L (0-32) 12/19/23 15:50 ALT 21 U/L (0-33) 12/19/23 15:50 Alkaline Phosphatase 93 U/L (35-105) 12/19/23 15:50 Total Protein 8.6 g/dL (6.6-8.7) 12/19/23 15:50 Albumin 5.4 g/dL (3.5-5.2) H 12/19/23 15:50 Globulin 3.2 g/dL (1.3-4.6) 12/19/23 15:50 Lipase 16 U/L (13-60) 12/19/23 15:50 HCG, Qual Negative (Negative) 12/19/23 15:50 Urine Color Light yellow (Yellow) 12/19/23 15:37 Urine Appearance Clear (CLEAR) 12/19/23 15:37 Urine pH 7 (5-7) 12/19/23 15:37 Ur Specific [place] 1.010 (1.005-1.030) 12/19/23 15:37 Urine Protein Neg (Negative) 12/19/23 15:37 Urine Glucose (UA) Norm (Normal) 12/19/23 15:37 Urine Ketones Negative (Negative) 12/19/23 15:37 Urine Blood Neg (Negative) 12/19/23 15:37 Urine Nitrate Negative (Negative) 12/19/23 15:37 Urine Bilirubin Neg (Negative) 12/19/23 15:37 Urine Urobilinogen Norm mg/dL (Negative) 12/19/23 15:37 Ur Leukocyte Esterase Negative (Negative) 12/19/23 15:37 No radiology studies performed this visit Discharge Plan Discharge Patient Disposition: Home Clinical Impression: Cannabinoid hyperemesis syndrome Condition: Stable Prescriptions: New Ativan 1 mg tablet 1 mg sublingual TID PRN (Reason: nausea and vomiting) Qty: 10 0RF No Action dicyclomine 10 mg capsule 10 mg PO QID sertraline [Zoloft] 100 mg tablet 100 mg PO DAILY Qty: 30 2RF Rx Instructions: Take 1/2 tab daily for 2 weeks then a full tab daily mirtazapine 7.5 mg tablet 7.5 mg PO .HS Qty: 30 2RF hydroxyzine HCl 25 mg tablet 25 mg PO BID PRN (Reason: Anxiety) Qty: 60 2RF cholecalciferol (vitamin D3) 1,250 mcg (50,000 unit) capsule 50,000 unit PO .once weekly Qty: 4 2RF capsaicin 0.1 % cream 1 applic topical BID Qty: 56.6 0RF Rx Instructions: do not wash area for at least 30 min after application Discharge Orders: Discharge ED (Routine); Ordered 12/19/23 Ordered By: Ila Dempsey Activity Restrictions/Additional Instructions: Please continue to refrain from marijuana use. You may use the capsaicin cream given to you from your last ED visit to your abdomen to help with pain and nausea. You may use the Ativan given to you today as directed for severe nausea and vomiting. Please follow-up with your primary care provider next week if symptoms do not seem to be improving. You may return to the emergency department at any time for continued episodes of vomiting, severe abdominal pain, generally feeling worse or unwell, or any other concerns may have. Coding Level of Care Code ED [employer] for Shelly Concepcion
[2023-12-19] MEDS: sodium chloride 0.9% 1,000 ML 999 ML IV (17:08)
[2023-12-19] MEDS: LORazepam 2 mg/mL INJ 10 mL MDV 0.5 MG IVP (17:08)
[2023-12-19] MEDS: haloperidol inj 5 mg/mL INJ 1 mL 2.5 MG IVP (17:09)
[2023-12-19] MEDS: potassium chloride ER 20 mEq Tablet 40 MEQ PO (18:18)
[2023-12-19 18:51] VITALS: BP 95/62; PULSE 76; O2SAT 96
== END 2023-12-19 18:52 | disposition home or self-care (01) ==
PROVIDERS: Emergency Medicine; Emergency Provider Physician Assistant
DX: R11.2 Nausea with vomiting, unspecified (principal); F12.90 Cannabis use, unspecified, uncomplicated; F17.290 Nicotine dependence, other tobacco product, uncomplicated
CPT/HCPCS: 36415; 80053; 81003; 83690; 84703; 85025; 96374; 96375; 99284; J1630; J2060; J7030